=== PATIENT | male | born 1930 | race Caucasian/White ===

== ENCOUNTER 2016-12-11 20:07 | Inpatient (IN) | payer MEDICARE, OTHER ==
[~2016-12-11] VITALS: Ht 188 cm; Wt 90.7 kg
[2016-12-11 20:00] VITALS: BP 157/44
[2016-12-11 20:07] VITALS: BP 157/44
[~2016-12-11 20:07] MED LIST: ACYCLOVIR400 MG ORAL; ARICEPT5 MG ORAL; ASPIR 8181 MG ORAL; ATARAX25 MG ORAL; BENAZEPRIL HCL40 MG ORAL; CIPROFLOXACIN500 M2 ORAL; CIPROFLOXACIN500 MG PO; CLARITIN10 M2 ORAL; DIOVAN80 MG ORAL; GLIPIZIDE5 MG ORAL; GLUCOPHAGE500 MG ORAL; IBUPROFEN400 MG ORAL; LACRI-LUBE1 APPLIC RIGHT EYE; LIPITOR40 MG ORAL; LIPITOR80 MG ORAL; MAGNESIUM OXID400 M1 ORAL; OMEGA 3 1,0001 EACH PO; PAXIL30 MG ORAL; TOPROL XL50 MG ORAL
[2016-12-11 21:02] LABS: BASOPHILS % (AUTO) 1.6 % (0.0-2.0); EOSINOPHILS % (AUTO) 0.3 % (0.0-3.0); LYMPHOCYTES % (AUTO) 19.1 % (20.0-45.0); MEAN CORPUSCULAR HEMOGLOBIN 33.3 PG (27.0-31.0); MEAN CORPUSCULAR VOLUME 90 FL (80-99); MEAN PLATELET VOLUME 7.9 FL (6.5-10.1); MONOCYTES % (AUTO) 10.2 % (1.0-10.0); NEUTROPHILS % (AUTO) 68.9 % (45.0-75.0); PLATELET COUNT 134 K/UL (150-450); RED BLOOD COUNT 4.74 M/UL (4.70-6.10); WHITE BLOOD COUNT 5.1 K/UL (4.8-10.8)
[2016-12-11 21:08] LABS: APPEARANCE,URINE SLIGHTLY CLOUDY; KETONES,URINE NEGATIVE (NEGATIVE); LEUKOCYTE ESTERASE ,URINE 2+ (NEGATIVE); NITRITE,URINE NEGATIVE (NEGATIVE); PH,URINE 5 (4.5-8.0); PROTEIN,URINE 4+ (NEGATIVE); UROBILINOGEN,URINE 1 MG/DL (0.0-1.0)
[2016-12-11 21:09] LABS: TROPONIN I < 0.30 ng/mL (<=0.30)
[2016-12-11 21:12] LABS: ALANINE AMINOTRANSFERASE 12 U/L (3-41); ANION GAP 15 (5-15); ASPARTATE AMINO TRANSFERASE 23 U/L (5-40); CALCIUM 8.9 mg/dL (8.6-10.2); CARBON DIOXIDE 27 mEQ/L (20-30); CHLORIDE 97 mEQ/L (98-107); CREATININE 0.8 mg/dL (0.7-1.2); HEMOLYSIS 8; POTASSIUM 4.2 mEQ/L (3.4-4.9); SODIUM 139 mEQ/L (135-145); TOTAL PROTEIN 6.2 g/dL (6.6-8.7)
[2016-12-11 21:16] LABS: RBC,URINE 40-60 /HPF (0 - 0)
[2016-12-11 21:17] LABS: AMORPHOUS SEDIMENT,UR FEW /LPF; BACTERIA,URINE MODERATE /HPF
[2016-12-11 21:30] LABS: REFLEX LACTIC ACID YES OR NO YES
[2016-12-11] MEDS ORDERED: cefTRIAXone 1 GM in NS 55 ML IVPB ONE (21:45)
[2016-12-11 22:09] VITALS: BP 146/41
--- NOTE | 2016-12-11 22:50 | Emergency Room Report ---
History of Present Illness General Chief Complaint: Generalized Weakness Source: Patient, Medical Record Present Illness HPI Patient is an 86-year-old male brought in by EMS after increased generalized weakness. Patient was noted to be diabetic. Patient had not been eating well since the morning. Patient had prior history of dementia and other chronic medical conditions. Patient was only taking metformin for his diabetes. Patient had not been vomiting or having diarrhea. Per EMS patient had been having some increased difficulty ambulating. Allergies: Coded Allergies: No Known Allergies (Verified , 03/19/11) Patient History Past Medical History: see triage record, DM Reviewed Nursing Documentation: PMH: Agreed, PSxH: Agreed Nursing Documentation-PMH Hx Cardiac Problems: Yes - HYPERCHOLESTEROL Hx Hypertension: Yes Hx COPD: Yes Hx Diabetes: Yes Hx Cancer: No Hx Gastrointestinal Problems: No Hx Neurological Problems: Yes Hx Memory Loss: Yes - mild cognition problems Hx Concentration Difficulty: Yes Hx Dizziness: Yes Hx Weakness: Yes - Left lower leg Review of Systems All Other Systems: negative except mentioned in HPI Physical Exam Vital Signs Date Time Temp Pulse Resp B/P Pulse Ox O2 Delivery O2 Flow Rate FiO2 12/11/16 19:36 98.8 67 16 153/62 92 Room Air 12/11/16 22:09 2.0 Sp02 EP Interpretation: reviewed, normal General Appearance: normal inspection, well appearing, no apparent distress, alert, GCS 15, non-toxic Head: atraumatic ENT: normal ENT inspection, hearing grossly normal, normal voice Neck: normal inspection, full range of motion, supple, no bony tend Respiratory: normal inspection, lungs clear, normal breath sounds, no respiratory distress, no retraction, no wheezing Cardiovascular #1: regular rate, rhythm, no edema Gastrointestinal: normal inspection, normal bowel sounds, non tender, soft, no guarding, no hernia Genitourinary: no CVA tenderness Musculoskeletal: normal inspection, back normal, normal range of motion Neurologic: normal inspection, alert, responsive, speech normal Psychiatric: normal inspection, judgement/insight normal, mood/affect normal Skin: normal inspection, normal color, no rash Medical Decision Making Diagnostic Impression: Primary Impression: UTI (urinary tract infection) Additional Impressions: Dementia Hypoglycemia Lactic acid acidosis ER Course Patient presented for generalized weakness. Differential diagnosis included was not limited to anemia, urinary tract infection, electrolyte abnormality, hypothyroidism, myocardial infarction, myasthenia gravis, dehydration, among others. Because of complexity of patient's case laboratory testing and imaging studies were ordered. The patient was noted to have a nonfocal neurologic exam. CT the head read by radiology showed atrophic changes with a lacunar infarct. The EKG interpreted by me showed normal sinus rhythm with a rate of [address] or T wave changes Patient was noted to have a low blood sugar and was given IV dextrose. Patient started on IV fluids and given IV Rocephin for presumed urinary tract infection. was contacted for inpatien observation. Chest X-Ray Diagnostic Results EP Interpretation: Yes Findings: no consolidation, no effusion, no pneumothorax, no acute cardiopulmonary disease Number of Views: 1 Last Vital Signs Date Time Temp Pulse Resp B/P Pulse Ox O2 Delivery O2 Flow Rate FiO2 12/11/16 22:28 99.1 65 18 146/41 97 Nasal Cannula 2.0 Status: unchanged Disposition: PLACE IN OBSERVATION Condition: Serious Referrals: ROSIE DUNCAN (PCP) Oneil Aponte Dec 11, 2016 22:50
[2016-12-12] VITALS (7 sets, daily range): BP systolic 126–168; BP diastolic 47–76
[2016-12-12] MEDS: NovoLOG Insulin Flexpen SUBQ SCH ×4 (06:30→21:00)
[2016-12-12 08:00] LABS: BASOPHILS % (AUTO) 0.5 % (0.0-2.0); LYMPHOCYTES % (AUTO) 17.6 % (20.0-45.0); MEAN CORPUSCULAR HEMOGLOBIN 29.3 PG (27.0-31.0); MEAN CORPUSCULAR HGB CONC 32.8 G/DL (32.0-36.0); MEAN CORPUSCULAR VOLUME 89 FL (80-99); MEAN PLATELET VOLUME 7.8 FL (6.5-10.1); MONOCYTES % (AUTO) 11.2 % (1.0-10.0); NEUTROPHILS % (AUTO) 70.7 % (45.0-75.0); PLATELET COUNT 131 K/UL (150-450); RED BLOOD COUNT 4.81 M/UL (4.70-6.10); WHITE BLOOD COUNT 6.2 K/UL (4.8-10.8)
[2016-12-12 08:20] LABS: ANION GAP 13 (5-15); CARBON DIOXIDE 25 mEQ/L (20-30); CHLORIDE 99 mEQ/L (98-107); CREATININE 0.6 mg/dL (0.7-1.2); HEMOLYSIS 12; SODIUM 137 mEQ/L (135-145)
[2016-12-12] MEDS ORDERED: Heparin 5000 units/ml inj SUBQ SCH (09:00)
[2016-12-12] MEDS: Aspirin Baby 81mg ORAL SCH (09:25)
[2016-12-12] MEDS: Donepezil 5mg Tab ORAL SCH (09:25)
[2016-12-12] MEDS: PARoxetine 10mg tab ORAL SCH (09:26)
[2016-12-12] MEDS: Irbesartan 150mg tablet ORAL SCH ×2 (09:26→17:17)
--- NOTE | 2016-12-12 09:40 | Diagnostic Imaging Report ---
Indication: Head pain Technique: Continuous helical CT scanning of the head was performed utilizing automated exposure control without intravenous contrast material. Axial and coronal reconstructions were obtained. Comparison: 01/28/16 CT dose: Total DLP 1484 mGycm; CTDI vol 70.4 mGy Findings: There is no acute intracranial hemorrhage, mass effect or cortical edema. The ventricles, cisterns and sulci are prominent consistent with atrophy. Nonspecific periventricular and subcortical hypoattenuation are seen suggestive of chronic ischemic microvascular changes. The posterior fossa and fourth ventricle are unremarkable. Sellar and suprasellar regions are grossly unremarkable. Mastoid air cells are clear. There is minimal mucosal thickening of paranasal sinuses. No focal lesions of the bony calvarium or soft tissues of the scalp are seen. Impression: No evidence of acute intracranial hemorrhage, mass effect or cortical edema. MRI may be obtained for more sensitive evaluation as clinically indicated. Atrophy and nonspecific periventricular and subcortical hypoattenuation suggestive of chronic ischemic microvascular changes. The CT scanner at [facility] is accredited by the [employer] and the scans are performed using protocols designed to limit radiation exposure to as low as reasonably achievable to attain images of sufficient resolution adequate for diagnostic evaluation.
--- NOTE | 2016-12-12 16:30 | General Progress Note ---
Assessment/Plan Status: stable Assessment/Plan 1. UTI - Cont Rocephin 1gm IV daily. F/U urine cx. 2. Generalized Weakness - ordered P.T./O.T. and txt. 3. HTN - cont home meds and add clonidine 0.1 mg one q 8 hrs PRN for SBP > 160. 4. DM II - SSI ordered. hold Metformin for now. 5. Hyperlipidemia - cont home meds. 6. Dementia Subjective Date patient seen: Dec 12, 2016 Time patient seen: 09:20 Constitutional: Reports: weakness HEENT: Reports: no symptoms Cardiovascular: Reports: no symptoms Respiratory: Reports: no symptoms Gastrointestinal/Abdominal: Reports: no symptoms Genitourinary: Reports: no symptoms Neurologic/Psychiatric: Reports: no symptoms Endocrine: Reports: no symptoms Hematologic/Lymphatic: Reports: no symptoms Allergies: Coded Allergies: No Known Allergies (Verified , 03/19/11) Subjective Pt is doing well. No sob or chest pain. No fever or chills. No nausea or vomiting. Objective Last 24 Hour Vital Signs Date Time Temp Pulse Resp B/P Pulse Ox O2 Delivery O2 Flow Rate FiO2 12/12/16 16:01 97.5 64 14 151/60 95 Nasal Cannula 12/12/16 12:15 98.1 69 20 126/76 97 Room Air 12/12/16 09:26 132/56 12/12/16 09:26 64 132/56 12/12/16 09:25 132/56 12/12/16 08:15 98.2 64 20 132/56 96 Nasal Cannula 2.0 12/12/16 04:00 98.4 68 22 156/59 92 Nasal Cannula 2.0 12/12/16 02:08 97.5 64 22 168/71 99 Nasal Cannula 2.0 12/12/16 00:00 64 22 168/71 99 Nasal Cannula 2.0 12/12/16 00:00 97.5 64 22 168/71 99 Nasal Cannula 2.0 12/11/16 22:28 99.1 65 18 146/41 97 Nasal Cannula 2.0 12/11/16 22:09 99.1 65 18 146/41 97 Nasal Cannula 2.0 12/11/16 20:07 99.1 66 19 157/44 94 Room Air 12/11/16 20:00 66 20 157/44 99 Room Air 12/11/16 19:36 98.8 67 16 153/62 92 Room Air Intake and Output 12/11/16 12/12/16 19:00 07:00 # Voids 3 # Bowel Movements 2 Laboratory Tests 12/11/16 20:20: White Blood Count 5.1, Red Blood Count 4.74, Hemoglobin 15.8, Hematocrit 42.7, Mean Corpuscular Volume 90, Mean Corpuscular Hemoglobin 33.3H, Mean Corpuscular Hemoglobin Concent 37.0H, Red Cell Distribution Width 13.0, Platelet Count 134L , Mean Platelet Volume 7.9, Neutrophils (%) (Auto) 68.9, Lymphocytes (%) (Auto) 19.1L, Monocytes (%) (Auto) 10.2H, Eosinophils (%) (Auto) 0.3, Basophils (%) ( Auto) 1.6, Urine Color Red, Urine Appearance Slightly cloudy, Urine pH 5, Urine Specific [place] 1.020, Urine Protein 4+H, Urine Glucose (UA) Negative, Urine Ketones Negative, Urine Occult Blood 5+H, Urine Nitrite Negative, Urine Bilirubin Negative, Urine Urobilinogen 1H, Urine Leukocyte Esterase 2+H, Urine RBC 40-60H, Urine WBC 5-10H, Urine Squamous Epithelial Cells None, Urine Amorphous Sediment FewH, Urine Bacteria ModerateH, Sodium Level 139, Potassium Level 4.2, Chloride Level 97L, Carbon Dioxide Level 27, Anion Gap 15, Blood Urea Nitrogen 23, Creatinine 0.8, Estimat Glomerular Filtration Rate , Glucose Level 40L, Lactic Acid Level 2.20, Calcium Level 8.9, Total Bilirubin 0.3, Aspartate Amino Transf (AST/SGOT) 23, Alanine Aminotransferase (ALT/SGPT) 12, Alkaline Phosphatase 66, Total Creatine Kinase 127, Creatine Kinase MB 3.0, Creatine Kinase MB Relative Index 2.3, Troponin I < 0.30, Total Protein 6.2L, Albumin 3.2L, Globulin 3.0, Albumin/Globulin Ratio 1.0 12/11/16 22:10: Lactic Acid Level 2.00 12/12/16 05:35: White Blood Count 6.2, Red Blood Count 4.81, Hemoglobin 14.1L, Hematocrit 42.8, Mean Corpuscular Volume 89, Mean Corpuscular Hemoglobin 29.3, Mean Corpuscular Hemoglobin Concent 32.8, Red Cell Distribution Width 13.0, Platelet Count 131L, Mean Platelet Volume 7.8, Neutrophils (%) (Auto) 70.7, Lymphocytes (%) (Auto) 17.6L, Monocytes (%) (Auto) 11.2H, Eosinophils (%) (Auto) 0.0, Basophils (%) ( Auto) 0.5, Sodium Level 137, Potassium Level 4.0, Chloride Level 99, Carbon Dioxide Level 25, Anion Gap 13, Blood Urea Nitrogen 18, Creatinine 0.6L, Estimat Glomerular Filtration Rate , Glucose Level 78, Calcium Level 8.0L Height (Feet): 6 Height (Inches): 2.00 Weight (Pounds): 200 General Appearance: no apparent distress, alert EENT: normal ENT inspection Neck: non-tender, normal alignment, supple Cardiovascular: normal rate, regular rhythm Respiratory/Chest: chest wall non-tender, lungs clear, normal breath sounds Abdomen: normal bowel sounds, non tender, soft, no organomegaly Extremities: normal range of motion, non-tender Edema: no edema noted Arm (L), no edema noted Arm (R), no edema noted Leg (L), no edema noted Leg (R), no edema noted Pedal (L), no edema noted Pedal (R), no edema noted Generalized Neurologic: no motor/sensory deficits, alert, responsive Skin: warm/dry Lymphatic: normal anterior cervical (L), normal anterior cervical (R), normal axillary (L), normal axillary (R), normal inguinal (L), normal inguinal (R), normal other, normal posterior cervical (L), normal posterior cervical (R), normal submandibular (L), normal submandibular (R), normal supraclavicular (L), normal supraclavicular (R) ROSIE DUNCAN Dec 12, 2016 16:30
[2016-12-13] VITALS: BP 142/49
--- NOTE | 2016-12-13 03:58 | History and Physical Report ---
DATE OF ADMISSION: 12/11/2016 CHIEF COMPLAINT: Generalized weakness. HISTORY OF PRESENT ILLNESS: This is an 86-year-old male, who is brought in by EMS for complaint of increased generalized weakness that has been noticed in the assisted living where he resides. The patient was fine in the morning, but according to caregiver the patient was not able to eat well and was very weak during walking, and there was a concern and he was transferred to [facility] to rule out stroke. The patient did not have any fever or chills. No nausea, vomiting, or abdominal pain. He has a history of dementia, diabetes mellitus, and hypertension for a long time. PAST MEDICAL HISTORY: Includes diabetes, hypertension, dementia, and hyperlipidemia. PAST SURGICAL HISTORY: History of hip replacement status post fall previously. FAMILY HISTORY: Unknown. ALLERGIES: No known drug allergies. SOCIAL HISTORY: The patient resides at the [facility] living [facility], no history of alcohol or drug use. No smoking. REVIEW OF SYSTEMS: Negative except for HPI. PHYSICAL EXAMINATION: VITAL SIGNS: Temperature 98.8 degrees, pulse 67, respirations 16, blood pressure 153/52, and pulse ox 92 on room air. GENERAL APPEARANCE: In no apparent distress. Alert and oriented x2. HEENT: Atraumatic and normocephalic. Extraocular muscles are intact. Throat is clear. CARDIOVASCULAR: Regular rate and rhythm. No murmur. No gallop. LUNGS: Clear to auscultation bilaterally. GI: Soft, nontender, and nondistended. Positive bowel sounds. No hepatosplenomegaly. : No CVA tenderness. EXTREMITIES: No edema, cyanosis, or clubbing. NEUROLOGIC: The patient responds to commands. SKIN: No rash. LABORATORY AND DIAGNOSTIC DATA: WBC 5.9, hemoglobin 15.8, hematocrit 43.7, platelet count 134,000, neutrophils 68, lymphocytes 19.1, and monocytes 10.2. Chemistry, sodium is 139, potassium 4.6, chloride 97, bicarbonate 27, BUN 23, creatinine 0.8, glucose 40, and calcium 8.9. AST 0.3, ALT 12, alkaline phosphatase 66. Total creatinine kinase 1.7, total protein 6.2, albumin 3.2, and troponin 3.0. UA slightly cloudy, +4 urine protein, +5 occult blood and +1 urobilinogen, and +2 leukocyte esterase, 30 to 60 urine RBC and 5 to 10 WBC, few amorphic sediments and moderate bacteria. No epithelial cells. EKG showed normal sinus rhythm at the rate of 62. There are no ST and T wave changes. CT of the heart showed atrophic changes with lacunar infarct. IMPRESSION: 1. Urinary tract infection. 2. Dementia. 3. Lactic acid likely acidosis. 4. Hypoglycemia. 5. Diabetes mellitus 6. Hypertension. 7. Hyperlipidemia. 8. Generalized weakness. 9. Gait instability. PLAN: The patient will be started on IV Rocephin and IV normal saline and will be followed up in the morning. Urine culture will be followed up as well. The patient will be restarted on home medications except for diabetic medications and we will start the patient on sliding scale insulin to cover for diabetes while inpatient. The patient will have PT and OT evaluation in the hospital and we depending on his progress, we may transfer him to rehab for physical therapy or assisted living. The patient will be admitted for minimum two-night stay for treatment of urinary tract infection and generalized weakness. Maribeth Loya M.D. DR: Albaro JOB#: [id number] CC: GERBER
[2016-12-13 04:00] VITALS: BP 156/58
[2016-12-13] MEDS: NovoLOG Insulin Flexpen SUBQ SCH ×4 (06:27→22:02)
[2016-12-13 08:07] VITALS: BP 148/53
[2016-12-13 08:12] LABS: BASOPHILS % (AUTO) 0.7 % (0.0-2.0); EOSINOPHILS % (AUTO) 0.5 % (0.0-3.0); LYMPHOCYTES % (AUTO) 37.4 % (20.0-45.0); MEAN CORPUSCULAR HEMOGLOBIN 29.3 PG (27.0-31.0); MEAN CORPUSCULAR HGB CONC 32.8 G/DL (32.0-36.0); MEAN CORPUSCULAR VOLUME 89 FL (80-99); MEAN PLATELET VOLUME 8.1 FL (6.5-10.1); MONOCYTES % (AUTO) 11.9 % (1.0-10.0); NEUTROPHILS % (AUTO) 49.4 % (45.0-75.0); PLATELET COUNT 139 K/UL (150-450); RED CELL DISTRIBUTION WIDTH 13.3 % (11.6-14.8); WHITE BLOOD COUNT 4.6 K/UL (4.8-10.8)
[2016-12-13 08:28] LABS: ANION GAP 11 (5-15); CALCIUM 8.2 mg/dL (8.6-10.2); CARBON DIOXIDE 27 mEQ/L (20-30); CHLORIDE 104 mEQ/L (98-107); CREATININE 0.6 mg/dL (0.7-1.2); HEMOLYSIS 6; SODIUM 142 mEQ/L (135-145)
[2016-12-13] MEDS: Aspirin Baby 81mg ORAL SCH (08:30)
[2016-12-13] MEDS: PARoxetine 10mg tab ORAL SCH (08:30)
[2016-12-13] MEDS: Irbesartan 150mg tablet ORAL SCH ×2 (08:31→17:16)
[2016-12-13] MEDS: Donepezil 5mg Tab ORAL SCH (08:31)
--- NOTE | 2016-12-13 09:34 | Diagnostic Imaging Report ---
Indication: Shortness of breath Technique: XRAY CHEST 1 V Comparison: 01/28/16 Findings: Cardiac silhouette is prominent. There is central pulmonary vascular congestion and bibasilar atelectasis. There is no pneumothorax or obvious effusion. Degenerative changes of the spine are noted. Impression: Cardiomegaly with central pulmonary vascular congestion and bibasilar atelectasis. Clinical correlation/followup recommended.
[2016-12-13 11:22] VITALS: BP 143/54
[2016-12-13 16:00] VITALS: BP 171/59
--- NOTE | 2016-12-13 17:24 | General Progress Note ---
Assessment/Plan Status: stable Assessment/Plan 1. UTI - Cont Rocephin 1gm IV daily. F/U urine cx. 2. Generalized Weakness - ordered P.T./O.T. and txt. 3. HTN - cont home meds and add clonidine 0.1 mg one q 8 hrs PRN for SBP > 160. 4. DM II - SSI ordered. hold Metformin for now. 5. Hyperlipidemia - cont home meds. 6. Dementia - CT of head was negative for CVA. not a candidate for MRI due to metal hip replacement. 7. D/C planning for tomorrow. Subjective Date patient seen: Dec 13, 2016 Time patient seen: 04:50 Constitutional: Reports: weakness HEENT: Reports: no symptoms Cardiovascular: Reports: no symptoms Respiratory: Reports: no symptoms Gastrointestinal/Abdominal: Reports: no symptoms Genitourinary: Reports: incontinence Neurologic/Psychiatric: Reports: weakness Endocrine: Reports: no symptoms Hematologic/Lymphatic: Reports: no symptoms Allergies: Coded Allergies: No Known Allergies (Verified , 03/19/11) Subjective Pt is doing well. No sob or chest pain. No fever or chills. No nausea or vomiting. was able to walk few steps with physical therapy with mod assistance. Objective Last 24 Hour Vital Signs Date Time Temp Pulse Resp B/P Pulse Ox O2 Delivery O2 Flow Rate FiO2 12/13/16 17:18 171/59 12/13/16 17:16 161/54 12/13/16 11:22 97.9 53 21 143/54 97 Nasal Cannula 2.0 12/13/16 08:31 148/53 12/13/16 08:31 56 148/53 12/13/16 08:30 148/53 12/13/16 08:07 97.2 56 20 148/53 95 Nasal Cannula 2.0 12/13/16 04:00 97.0 55 20 156/58 96 Nasal Cannula 2.0 12/13/16 00:00 97.3 55 20 142/49 95 Nasal Cannula 2.0 12/13/16 00:00 97.3 55 20 142/49 95 Nasal Cannula 2.0 12/12/16 20:00 97.0 59 20 139/47 95 Nasal Cannula 2.0 Intake and Output 12/12/16 12/13/16 19:00 07:00 Intake Total 440 ml Output Total 200 ml Balance 240 ml Intake Oral 440 ml Output Urine Total 200 ml # Voids 2 4 Laboratory Tests 12/13/16 07:30: White Blood Count 4.6L, Red Blood Count 4.90, Hemoglobin 14.4, Hematocrit 43.8, Mean Corpuscular Volume 89, Mean Corpuscular Hemoglobin 29.3, Mean Corpuscular Hemoglobin Concent 32.8, Red Cell Distribution Width 13.3, Platelet Count 139L, Mean Platelet Volume 8.1, Neutrophils (%) (Auto) 49.4, Lymphocytes (%) (Auto) 37.4, Monocytes (%) (Auto) 11.9H, Eosinophils (%) (Auto) 0.5, Basophils (%) ( Auto) 0.7, Sodium Level 142, Potassium Level 4.0, Chloride Level 104, Carbon Dioxide Level 27, Anion Gap 11, Blood Urea Nitrogen 20, Creatinine 0.6L, Estimat Glomerular Filtration Rate , Glucose Level 88, Calcium Level 8.2L Height (Feet): 6 Height (Inches): 2.00 Weight (Pounds): 200 General Appearance: no apparent distress, alert EENT: normal ENT inspection Neck: non-tender, normal alignment, supple Cardiovascular: normal peripheral pulses, normal rate, regular rhythm Respiratory/Chest: chest wall non-tender, lungs clear, normal breath sounds Abdomen: normal bowel sounds, non tender, soft Extremities: normal range of motion, non-tender Edema: no edema noted Arm (L), no edema noted Arm (R), no edema noted Leg (L), no edema noted Leg (R), no edema noted Pedal (L), no edema noted Pedal (R), no edema noted Generalized Neurologic: no motor/sensory deficits, alert, responsive Skin: warm/dry Lymphatic: normal anterior cervical (L), normal anterior cervical (R), normal axillary (L), normal axillary (R), normal inguinal (L), normal inguinal (R), normal other, normal posterior cervical (L), normal posterior cervical (R), normal submandibular (L), normal submandibular (R), normal supraclavicular (L), normal supraclavicular (R) ROSIE DUNCAN Dec 13, 2016 17:24
[2016-12-13 19:00] VITALS: BP 146/52
[2016-12-13] MEDS ORDERED: cefTRIAXone 1 GM in D5W 55 ML IVPB SCH (21:00)
[2016-12-14] VITALS: BP 142/54
[2016-12-14 04:00] VITALS: BP 136/58
[2016-12-14] MEDS: NovoLOG Insulin Flexpen SUBQ SCH ×3 (06:12→17:45)
[2016-12-14 07:11] LABS: ANION GAP 11 (5-15); CARBON DIOXIDE 26 mEQ/L (20-30); CHLORIDE 104 mEQ/L (98-107); CREATININE 0.5 mg/dL (0.7-1.2); HEMOLYSIS 14; POTASSIUM 4.2 mEQ/L (3.4-4.9); SODIUM 141 mEQ/L (135-145)
[2016-12-14 07:27] LABS: BASOPHILS % (AUTO) 0.8 % (0.0-2.0); EOSINOPHILS % (AUTO) 0.9 % (0.0-3.0); LYMPHOCYTES % (AUTO) 39.4 % (20.0-45.0); MEAN CORPUSCULAR HEMOGLOBIN 29.5 PG (27.0-31.0); MEAN CORPUSCULAR HGB CONC 33.2 G/DL (32.0-36.0); MEAN CORPUSCULAR VOLUME 89 FL (80-99); MEAN PLATELET VOLUME 7.9 FL (6.5-10.1); MONOCYTES % (AUTO) 10.6 % (1.0-10.0); NEUTROPHILS % (AUTO) 48.3 % (45.0-75.0); PLATELET COUNT 117 K/UL (150-450); RED BLOOD COUNT 4.72 M/UL (4.70-6.10); WHITE BLOOD COUNT 4.3 K/UL (4.8-10.8)
[2016-12-14 08:19] VITALS: BP 140/65
[2016-12-14] MEDS: PARoxetine 10mg tab ORAL SCH (08:49)
[2016-12-14] MEDS: Donepezil 5mg Tab ORAL SCH (08:49)
[2016-12-14] MEDS: Irbesartan 150mg tablet ORAL SCH ×2 (08:49→17:44)
[2016-12-14] MEDS: Aspirin Baby 81mg ORAL SCH (08:49)
--- NOTE | 2016-12-14 09:04 | General Progress Note ---
Assessment/Plan Status: stable Assessment/Plan 1. UTI - will D/C to rehab today and follow up Urine Sensitivity later. 2. Generalized Weakness - Transfer to Rehab today. 3. HTN - controlled. cont current meds. 4. DM II - On SSI. Will restart Metformin as outpt. 5. Hyperlipidemia - cont home meds. 6. Dementia - CT of head was negative for CVA. not a candidate for MRI due to metal hip replacement. 7. D/C to [facility] today. Subjective Date patient seen: Dec 14, 2016 Time patient seen: 08:50 Constitutional: Reports: no symptoms HEENT: Reports: no symptoms Cardiovascular: Reports: no symptoms Respiratory: Reports: no symptoms Gastrointestinal/Abdominal: Reports: no symptoms Genitourinary: Reports: no symptoms Neurologic/Psychiatric: Reports: no symptoms Endocrine: Reports: no symptoms Hematologic/Lymphatic: Reports: no symptoms Allergies: Coded Allergies: No Known Allergies (Verified , 03/19/11) Subjective Pt is doing well. No sob or chest pain. No fever or chills. No nausea or vomiting. Objective Last 24 Hour Vital Signs Date Time Temp Pulse Resp B/P Pulse Ox O2 Delivery O2 Flow Rate FiO2 12/14/16 08:50 140/65 12/14/16 08:49 140/65 12/14/16 08:49 59 140/65 12/14/16 08:19 97.5 59 16 140/65 92 Room Air 12/14/16 04:00 97.4 68 20 136/58 94 Room Air 12/14/16 00:00 97.9 62 20 142/54 92 Room Air 12/13/16 19:00 97.0 60 20 146/52 93 Nasal Cannula 2.0 12/13/16 17:18 171/59 12/13/16 17:16 161/54 12/13/16 16:00 96.8 60 20 171/59 97 Nasal Cannula 2.0 12/13/16 11:22 97.9 53 21 143/54 97 Nasal Cannula 2.0 Intake and Output 12/13/16 12/14/16 18:59 06:59 Intake Total 360 ml 295 ml Output Total 50 ml Balance 310 ml 295 ml Intake Oral 360 ml 240 ml IV Total 55 ml Output Urine Total 50 ml # Voids 2 6 # Bowel Movements 1 Laboratory Tests 12/14/16 06:00: White Blood Count 4.3L, Red Blood Count 4.72, Hemoglobin 13.9L, Hematocrit 42.0 , Mean Corpuscular Volume 89, Mean Corpuscular Hemoglobin 29.5, Mean Corpuscular Hemoglobin Concent 33.2, Red Cell Distribution Width 13.0, Platelet Count 117L, Mean Platelet Volume 7.9, Neutrophils (%) (Auto) 48.3, Lymphocytes ( %) (Auto) 39.4, Monocytes (%) (Auto) 10.6H, Eosinophils (%) (Auto) 0.9, Basophils (%) (Auto) 0.8, Sodium Level 141, Potassium Level 4.2, Chloride Level 104, Carbon Dioxide Level 26, Anion Gap 11, Blood Urea Nitrogen 17, Creatinine 0.5L, Estimat Glomerular Filtration Rate , Glucose Level 96, Calcium Level 8.0L Height (Feet): 6 Height (Inches): 2.00 Weight (Pounds): 200 General Appearance: no apparent distress, alert EENT: normal ENT inspection, TMs normal Neck: non-tender, normal alignment, supple Cardiovascular: normal peripheral pulses, normal rate, regular rhythm Respiratory/Chest: chest wall non-tender, lungs clear, normal breath sounds Abdomen: normal bowel sounds, non tender, soft Extremities: normal range of motion, non-tender Edema: no edema noted Arm (L), no edema noted Arm (R), no edema noted Leg (L), no edema noted Leg (R), no edema noted Pedal (L), no edema noted Pedal (R), no edema noted Generalized Neurologic: alert, responsive Skin: warm/dry Lymphatic: normal anterior cervical (L), normal anterior cervical (R), normal axillary (L), normal axillary (R), normal inguinal (L), normal inguinal (R), normal other, normal posterior cervical (L), normal posterior cervical (R), normal submandibular (L), normal submandibular (R), normal supraclavicular (L), normal supraclavicular (R) ROSIE DUNCAN Dec 14, 2016 09:04
[2016-12-14 11:39] VITALS: BP 137/50
[2016-12-14] MEDS ORDERED: CEPHALEXIN500 MG ORAL (13:18)
[2016-12-14 16:00] VITALS: BP 163/74
[2016-12-14 19:17] VITALS: BP 140/68
--- NOTE | 2016-12-17 16:18 | Cardiology Report ---
APPROVED REPORT EKG Measurement Heart [id number] Normal sinus rhythm Left anterior fascicular block Voltage criteria for left ventricular hypertrophy Nonspecific ST and T wave abnormality Abnormal ECG
--- NOTE | 2016-12-31 19:25 | Discharge Summary ---
Discharge Summary Hospital Course Date of Admission Dec 11, 2016 at 21:11 Date of Discharge Dec 14, 2016 at 20:35 Admitting Diagnosis Generalized weakness HPI Serge Abernathy is a 86 year old male who was admitted on Dec 11, 2016 at 21:11 for Generalized Weakness Hospital Course [id number] Discharge Discharge Disposition Patient was discharged to SNF/Subacute Facility(03) Discharge Diagnoses: Perla Saleh NP Dec 31, 2016 19:25
--- NOTE | 2016-12-31 23:38 | Discharge Summary 2 SIG ---
DATE OF ADMISSION: 12/11/2016 DATE OF DISCHARGE: 12/14/2016 BRIEF HOSPITAL COURSE: The patient is a 86-year-old male, who was brought by EMS for complaints of increased generalized weakness. The patient was fine in the morning and was not able to eat well and was very weak when walking. He was transferred to [facility] for further evaluation. He has history of dementia, diabetes mellitus, and hypertension. On evaluation, EKG showed sinus rhythm, no ST or T-wave changes. CT of the brain showed atrophic changes with lacunar infarct. Urine showed urine infection and the patient was admitted and was started on IV normal saline and IV Rocephin. He underwent physical therapy and occupational therapy. A CT of the head was negative for CVA, however, unable to do MRI due to metal hip replacement. The patient was discharged to [facility]. FINAL DIAGNOSES: 1. Urinary tract infection. 2. Generalized weakness. 3. Hypertension. 4. Diabetes mellitus, type 2. 5. Hyperlipidemia. 6. Dementia. Maribeth Loya M.D. I have been assigned to dictate discharge summary on this account and I was not involved in the patient's management. Perla Saleh N.P. DR: TOMÁS JOB#: [id number] CC: GERBER
== END 2016-12-14 20:35 | DRG 690 ==
LOC: EDBD 20:07 → EMR 21:07 → 4E 21:11 → OBSVTOIN 21:11 → UNDOADMOB 21:11 → 4E 21:12 → UNDOADMOB 21:12 → 4E 21:13 → UNDOADMOB 21:13 → EDBEDREQ 22:03 → OBSVTOIN 12-12 00:49 → INTOOBSV 12-12 00:49
DX: N39.0 Urinary tract infection, site not specified (principal); E11.649 Type 2 diabetes mellitus with hypoglycemia without coma; F03.90 Unspecified dementia, unspecified severity, without behavioral disturbance, psychotic disturbance, mood disturbance, and anxiety; E78.00 Pure hypercholesterolemia, unspecified; I10 Essential (primary) hypertension; E78.5 Hyperlipidemia, unspecified; R26.89 Other abnormalities of gait and mobility
CPT/HCPCS: 36415; 70450; 71010; 80048; 80053; 81003; 82550; 82553; 82962; 83605; 84484; 85025; 86710; 87040; 87081; 87086; 87181; 93005; J1815

== ENCOUNTER 2018-03-10 13:51 | Inpatient (IN) | payer MEDICARE, OTHER ==
[~2018-03-10] VITALS: Ht 177.8 cm; Wt 79.4 kg
[~2018-03-10 13:51] MED LIST changes: +CEPHALEXIN500 MG ORAL
[2018-03-10 14:20] VITALS: BP 154/54
[2018-03-10 14:52] LABS: HEMATOCRIT 48.3 % (42.0-52.0); HEMOGLOBIN 16.5 G/DL (14.2-18.0); MEAN CORPUSCULAR VOLUME 89 FL (80-99); PLATELET COUNT 155 K/UL (150-450); RED BLOOD COUNT 5.41 M/UL (4.70-6.10); RED CELL DISTRIBUTION WIDTH 12.3 % (11.6-14.8); WHITE BLOOD COUNT 9.3 K/UL (4.8-10.8)
[2018-03-10 14:53] LABS: APPEARANCE,URINE TURBID; BILIRUBIN, URINE NEGATIVE (NEGATIVE); GLUCOSE, URINE (UA) NEGATIVE (NEGATIVE); KETONES,URINE NEGATIVE (NEGATIVE); LEUKOCYTE ESTERASE ,URINE 3+ (NEGATIVE); NITRITE,URINE NEGATIVE (NEGATIVE); PH,URINE 5 (4.5-8.0); PROTEIN,URINE 4+ (NEGATIVE); UROBILINOGEN,URINE NORMAL MG/DL (0.0-1.0)
[2018-03-10 14:56] LABS: COLOR,URINE YELLOW
[2018-03-10 15:07] LABS: ANION GAP 9 mmol/L (5-15); BLOOD UREA NITROGEN 19 mg/dL (7-18); CALCIUM 9.1 MG/DL (8.5-10.1); CARBON DIOXIDE 27 MMOL/L (21-32); CHLORIDE 105 MMOL/L (98-107); CREATININE 0.7 MG/DL (0.55-1.30); POTASSIUM 4.4 MMOL/L (3.5-5.1); SODIUM 140 MMOL/L (136-145)
--- NOTE | 2018-03-10 15:15 | Emergency Room Report ---
History of Present Illness General Chief Complaint: Vomiting Source: Patient, Medical Record Present Illness HPI 88-year-old male presents ED for evaluation. Patient brought in from [facility] facility. Patient had low-grade fever at facility. Temp here 100. Patient showing no distress upon arrival. No chest pain or shortness of breath. There have been a few episodes of vomiting. Denies any abdominal pain. No other aggravating relieving factors. 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 Hx Memory Loss: Yes - mild cognition problems Hx Concentration Difficulty: Yes Hx Dizziness: Yes Hx Weakness: Yes Review of Systems All Other Systems: negative except mentioned in HPI Physical Exam Vital Signs Date Time Temp Pulse Resp B/P (MAP) Pulse Ox O2 Delivery O2 Flow Rate FiO2 03/10/18 13:45 100.0 82 22 172/76 94 Nasal Cannula 2.0 100.0 Sp02 EP Interpretation: reviewed, normal General Appearance: no apparent distress, alert, GCS 15, non-toxic Head: normocephalic, atraumatic Eyes: bilateral eye normal inspection, bilateral eye PERRL ENT: hearing grossly normal, normal pharynx, no angioedema, normal voice Neck: full range of motion, supple/symm/no masses Respiratory: chest non-tender, normal breath sounds, crackles, speaking full sentences Cardiovascular #1: regular rate, rhythm, no edema Cardiovascular #2: 2+ carotid (R), 2+ carotid (L), 2+ radial (R), 2+ radial (L) , 2+ dorsalis pedis (R), 2+ dorsalis pedis (L) Gastrointestinal: normal bowel sounds, non tender, soft, non-distended, no guarding, no rebound Rectal: deferred Genitourinary: normal inspection, no CVA tenderness Musculoskeletal: back normal, gait/station normal, normal range of motion, non- tender Neurologic: alert, oriented x3, responsive, motor strength/tone normal, sensory intact, speech normal Psychiatric: judgement/insight normal, memory normal, mood/affect normal, no suicidal/homicidal ideation Reflexes: 3+ bicep (R), 3+ bicep (L), 3+ tricep (R), 3+ tricep (L), 3+ knee (R) , 3+ knee (L) Skin: normal color, no rash, warm/dry, well hydrated Lymphatic: no adenopathy Medical Decision Making Diagnostic Impression: Primary Impression: Vomiting Qualified Codes: R11.2 - Nausea with vomiting, unspecified Additional Impressions: UTI (urinary tract infection) Qualified Codes: N39.0 - Urinary tract infection, site not specified Generalized weakness Dementia Qualified Codes: F03.90 - Unspecified dementia without behavioral disturbance CHF (congestive heart failure) Qualified Codes: I50.9 - Heart failure, unspecified ER Course Hospital Course 88 yo M presents to ED c/o vomiting. fever Differential diagnoses include: Pneumonia, UTI, sepsis, dehydration, FL/ unstable angina Clinical course Patient placed on stretcher. On conveyor monitor with stable vitals are ED course. After initial history and physical, I ordered labs, IV fluids, EKG, chest x-ray, blood cultures, UA. Labs - electrolytes ok, no leukocytosis, troponins negative, BNP elevated, UA grossly positive for UTI EKG - NSR, LVH, no acute ischemic changes interpreted by me CXR -cardiomegaly, CHF Abx given. patient not given 30cc/kg fluid bolus as patient is normotensive, also because of significant CHF Discussed findings with son, who lives in [facility] Case discussed with Dr Loya and they agreed to admit patient to their service for further care and support I feel this is a highly complex case requiring extensive working including EKG/ Rhythm strip, Xray/CT/US, Blood/urine lab work, repeat exams while in ED, and administration of strong opiates/narcotics for pain control, admission to hospital or close patient follow up. Diagnosis - UTI, vomiting, CHF, weakness, dementia Patient admitted to telemetry in serious condition Labs Test 03/10/18 14:29 White Blood Count 9.3 K/UL (4.8-10.8) Red Blood Count 5.41 M/UL (4.70-6.10) Hemoglobin 16.5 G/DL (14.2-18.0) Hematocrit 48.3 % (42.0-52.0) Mean Corpuscular Volume 89 FL (80-99) Mean Corpuscular Hemoglobin 30.5 PG (27.0-31.0) Mean Corpuscular Hemoglobin Concent 34.1 G/DL (32.0-36.0) Red Cell Distribution Width 12.3 % (11.6-14.8) Platelet Count 155 K/UL (150-450) Mean Platelet Volume 7.6 FL (6.5-10.1) Neutrophils (%) (Auto) % (45.0-75.0) Lymphocytes (%) (Auto) % (20.0-45.0) Monocytes (%) (Auto) % (1.0-10.0) Eosinophils (%) (Auto) % (0.0-3.0) Basophils (%) (Auto) % (0.0-2.0) Differential Total Cells Counted 100 Neutrophils % (Manual) 88 % (45-75) Lymphocytes % (Manual) 7 % (20-45) Monocytes % (Manual) 5 % (1-10) Eosinophils % (Manual) 0 % (0-3) Basophils % (Manual) 0 % (0-2) Band Neutrophils 0 % (0-8) Platelet Estimate Adequate Platelet Morphology Normal Red Blood Cell Morphology Normal Urine Color Yellow Urine Appearance Turbid Urine pH 5 (4.5-8.0) Urine Specific Perrin 1.015 (1.005-1.035) Urine Protein 4+ (NEGATIVE) Urine Glucose (UA) Negative (NEGATIVE) Urine Ketones Negative (NEGATIVE) Urine Occult Blood 5+ (NEGATIVE) Urine Nitrite Negative (NEGATIVE) Urine Bilirubin Negative (NEGATIVE) Urine Urobilinogen Normal MG/DL (0.0-1.0) Urine Leukocyte Esterase 3+ (NEGATIVE) Urine RBC Tntc /HPF (0 - 0) Urine WBC Tntc /HPF (0 - 0) Urine Squamous Epithelial Cells Few /LPF (NONE/OCC) Urine Bacteria Moderate /HPF (NONE) Sodium Level 140 MMOL/L (136-145) Potassium Level 4.4 MMOL/L (3.5-5.1) Chloride Level 105 MMOL/L (98-107) Carbon Dioxide Level 27 MMOL/L (21-32) Anion Gap 9 mmol/L (5-15) Blood Urea Nitrogen 19 mg/dL (7-18) Creatinine 0.7 MG/DL (0.55-1.30) Estimat Glomerular Filtration Rate mL/min (>60) Glucose Level 121 MG/DL (74-106) Lactic Acid Level 2.30 mmol/L (0.4-2.0) Calcium Level 9.1 MG/DL (8.5-10.1) Total Bilirubin 0.6 MG/DL (0.2-1.0) Aspartate Amino Transf (AST/SGOT) 20 U/L (15-37) Alanine Aminotransferase (ALT/SGPT) 18 U/L (12-78) Alkaline Phosphatase 87 U/L (46-116) Total Creatine Kinase 57 U/L (26-308) Creatine Kinase MB 0.7 NG/ML (0.0-3.6) Creatine Kinase MB Relative Index 1.2 Troponin I 0.019 ng/mL (0.000-0.056) Pro-B-Type Natriuretic Peptide 1599 pg/mL (0-125) Total Protein 6.7 G/DL (6.4-8.2) Albumin 2.8 G/DL (3.4-5.0) Globulin 3.9 g/dL Albumin/Globulin Ratio 0.7 (1.0-2.7) EKG Diagnostic Results Rate: normal Rhythm: NSR ST Segments: no acute changes ASA given to the pt in ED: No Rhythm Strip Diag. Results EP Interpretation: yes Rhythm: NSR, no PVC's, no ectopy Chest X-Ray Diagnostic Results Chest X-Ray Diagnostic Results : Chest X-Ray Ordered: Yes # of Views/Limited/Complete: 1 View Indication: Other - vomiting EP Interpretation: Yes Interpretation: no pneumothorax, other - atelectasis/infiltrate Impression: Other - chf/pneumonia Electronically Signed by: Electronically signed by Thien Figueroa MD Last Vital Signs Date Time Temp Pulse Resp B/P (MAP) Pulse Ox O2 Delivery O2 Flow Rate FiO2 03/10/18 13:45 100.0 82 22 172/76 94 Nasal Cannula 2.0 100.0 Status: improved Disposition: ADMITTED INPATIENT Condition: Serious Thien Figueroa MD Mar 10, 2018 15:15
[2018-03-10 15:21] LABS: ALANINE AMINOTRANSFERASE 18 U/L (12-78); ALBUMIN 2.8 G/DL (3.4-5.0); ALBUMIN/GLOBULIN RATIO 0.7 (1.0-2.7); ALKALINE PHOSPHATASE 87 U/L (46-116); ASPARTATE AMINO TRANSFERASE 20 U/L (15-37); BILIRUBIN,TOTAL 0.6 MG/DL (0.2-1.0); CKMB 0.7 NG/ML (0.0-3.6); CREATINE KINASE 57 U/L (26-308)
--- NOTE | 2018-03-10 15:24 | Diagnostic Imaging Report ---
Indication: Dyspnea Comparison: 12/11/2016 A single view chest radiograph was obtained. Findings: Mild interstitial edema suspected with cardiomegaly and prominent vascularity centrally. Bones are osteopenic. IMPRESSION: Suspected mild CHF/interstitial edema
[2018-03-10] MEDS ORDERED: Azithromycin 500 MG in NS 275 ML IV ONE (15:30)
[2018-03-10] MEDS ORDERED: Cefepime HCl 1 GM in D5W 55 ML IVPB ONE (15:30)
[2018-03-10] MEDS ORDERED: CLORPRES 0.1-11 EACH PO (15:36)
[2018-03-10 20:00] VITALS: BP 137/90
[2018-03-10] MEDS: Atorvastatin 20mg tab ORAL SCH (21:05)
[2018-03-10] MEDS: Heparin 5000 units/ml inj SUBQ SCH (21:06)
[2018-03-11 00:11] VITALS: BP 136/92
--- NOTE | 2018-03-11 02:32 | History and Physical Report ---
DATE OF ADMISSION: 03/10/2018 CHIEF COMPLAINT: Fever, chills, and vomiting x1 day. HISTORY OF PRESENT ILLNESS: This is an 88-year-old male, who was brought into the ER for evaluation of fever and chills with vomiting. The patient resides in the assisted living [facility] and he had an episode of fever and chills with low-grade temperature of 100 at the assisted living. The patient was transferred to the emergency room for evaluation. Upon arrival, the patient was noticed to have been febrile with sign of urinary tract infection and possible pneumonia. The patient's workup was consistent with urinary tract infection and questionable pneumonia. The patient received IV antibiotic, cefepime and IV azithromycin. He also noticed to have mild heart failure based on the chest x-ray and elevated BNP. PAST MEDICAL HISTORY: Includes history of diabetes, hypertension, hyperlipidemia, osteoarthritis, and chronic obstructive pulmonary disease. PAST SURGICAL HISTORY: History of hip replacement. FAMILY HISTORY: Nonreactive and noncontributory. SOCIAL HISTORY: The patient denies smoking, alcohol use, or drug use. REVIEW OF SYSTEMS: Negative except for history of present illness, which is nausea, vomiting, and fever and chills. PHYSICAL EXAMINATION: VITAL SIGNS: Include a temperature of 100.0, pulse 82, respirations 22, blood pressure 172/76, and pulse oximetry of 94% on 2% nasal cannula. GENERAL APPEARANCE: Alert and oriented x3. HEENT: Normocephalic, normochromic. Extraocular muscles intact. Throat is clear. NECK: Supple. No lymphadenopathy. LUNGS: Clear to auscultation bilaterally. No crackles. No rales. CARDIOVASCULAR: Regular rate and rhythm. No murmur. No gallop. GASTROINTESTINAL: Soft, nontender, and nondistended. Positive bowel sounds. EXTREMITIES: No edema, cyanosis, or clubbing. NEUROLOGIC: Responds to commands. Alert and oriented x3. SKIN: No rash. LABORATORY AND DIAGNOSTIC DATA: Include WBC 9.3, hemoglobin 16.5, hematocrit 48.3, platelet count 155, neutrophils 88, lymphocytes 7, mono 5, eosinophils 0, and bands 0. Sodium 140, potassium 4.4, chloride 105, carbon dioxide 27, BUN 19, creatinine 0.7, and glucose 121. Lactic acid is 2.3. Calcium 9.1. Total bilirubin 0.6, AST 20, ALT 18, and alkaline phosphatase 87. Total creatine kinase 57. Troponin less than 0.019. BNP is 1599. Albumin 2.8, globulin 3.9. Urine showed +4 protein, +5 occult blood, leukocyte esterase +3, urine rbc too many to count, urine wbc too many to count, squamous cells are few, urine bacteria is moderate. Chest x-ray includes mild congestive heart failure. IMPRESSION: 1. Urinary tract infection. We will continue cefepime and azithromycin to cover for pneumonia as well. Follow up urine culture. 2. Questionable pneumonia. We will continue the above antibiotics and we will recheck chest x-ray as an inpatient. 3. Congestive heart failure. We will start the patient on a low-dose Lasix and monitor the patient. 4. Diabetes mellitus type 2. We will continue home medications. 5. Hypertension. Again, we will continue home medications and adjust medications based on the blood pressure. 6. Hyperlipidemia. Continue home medications. 7. Osteoarthritis. We will monitor for pain management. 8. Generalized weakness, stable at this time. The patient will be admitted for a minimum of two-night stay for the diagnosis of urinary tract infection and possible congestive heart failure. Maribeth Loya M.D. DR: FAUZIA JOB#: [id number] CC: GERBER
[2018-03-11] MEDS: Cefepime HCl 1 GM in D5W 110 ML IVPB SCH ×2 (03:23→15:30)
[2018-03-11 04:00] VITALS: BP 142/53
[2018-03-11 08:00] VITALS: BP 142/56
[2018-03-11 08:13] LABS: BASOPHILS % (AUTO) 0.5 % (0.0-2.0); HEMATOCRIT 45.6 % (42.0-52.0); LYMPHOCYTES % (AUTO) 10.5 % (20.0-45.0); MEAN CORPUSCULAR VOLUME 90 FL (80-99); MONOCYTES % (AUTO) 6.3 % (1.0-10.0); NEUTROPHILS % (AUTO) 82.7 % (45.0-75.0); PLATELET COUNT 137 K/UL (150-450); RED BLOOD COUNT 5.09 M/UL (4.70-6.10); RED CELL DISTRIBUTION WIDTH 12.6 % (11.6-14.8); WHITE BLOOD COUNT 6.1 K/UL (4.8-10.8)
[2018-03-11 08:42] LABS: ANION GAP 8 mmol/L (5-15); BLOOD UREA NITROGEN 19 mg/dL (7-18); CALCIUM 8.6 MG/DL (8.5-10.1); CARBON DIOXIDE 26 MMOL/L (21-32); CHLORIDE 105 MMOL/L (98-107); CREATININE 0.9 MG/DL (0.55-1.30); SODIUM 139 MMOL/L (136-145)
[2018-03-11] MEDS: PARoxetine 20mg tab ORAL SCH (08:44)
[2018-03-11] MEDS: Donepezil 5mg Tab ORAL SCH (08:44)
[2018-03-11] MEDS: Aspirin Baby 81mg ORAL SCH (08:45)
[2018-03-11] MEDS: metFORMIN 500mg tab ORAL SCH ×2 (08:45→18:03)
[2018-03-11] MEDS: Irbesartan 150mg tablet ORAL SCH ×2 (08:46→20:14)
[2018-03-11] MEDS: Metoprolol Succinate XL 50mg tab ORAL SCH (08:48)
[2018-03-11] MEDS: Heparin 5000 units/ml inj SUBQ SCH ×2 (08:49→20:16)
[2018-03-11] MEDS ORDERED: GlipiZIDE 5mg tab ORAL SCH (09:00)
[2018-03-11 12:00] VITALS: BP 119/51
[2018-03-11 15:45] VITALS: BP 148/63
[2018-03-11] MEDS: GlipiZIDE 5mg tab ORAL SCH (18:04)
[2018-03-11] MEDS: Azithromycin 500 MG in D5W 275 ML IV SCH (18:05)
[2018-03-11] MEDS ORDERED: Vancomycin 1250mg/D5W 250ml IVPB SCH (18:45)
[2018-03-11 20:00] VITALS: BP 128/50
[2018-03-11] MEDS: Atorvastatin 20mg tab ORAL SCH (20:14)
--- NOTE | 2018-03-11 20:51 | General Progress Note ---
Assessment/Plan Status: stable Assessment/Plan 1. UTI - cont cefipime 1 gm bid. follow up urine cx. 2. Sepsis - cont cefipime and vanco per ID. follow up cultures. 3. Possible Pnemonia - on cefipime and Azithromycin now. recheck CXR. 4. Mild CHF - Check Echo and cont Lasix 20 mg daily. check BNP in AM. 5. HTN- cont current meds. 6. Hyperlipidemia - cont current med. 7. DM II - change glipizide 2.5 mg bid due to one epidose of hypoglycemia. Subjective Date patient seen: Mar 11, 2018 Time patient seen: 20:20 Constitutional: Reports: weakness HEENT: Reports: no symptoms Cardiovascular: Reports: no symptoms Respiratory: Reports: no symptoms Gastrointestinal/Abdominal: Reports: no symptoms Genitourinary: Reports: no symptoms Neurologic/Psychiatric: Reports: no symptoms Endocrine: Reports: no symptoms Hematologic/Lymphatic: Reports: no symptoms Allergies: Coded Allergies: No Known Allergies (Verified , 03/19/11) Subjective Pt. is lying in bed. No chest pain. he was slightly sob today. His blood culture grow gram neg in pair. No diarrhea. Objective Last 24 Hour Vital Signs Date Time Temp Pulse Resp B/P (MAP) Pulse Ox O2 Delivery O2 Flow Rate FiO2 03/11/18 20:14 148/63 03/11/18 20:00 74 03/11/18 16:30 Nasal Cannula 3.0 32 03/11/18 16:30 94 Nasal Cannula 3.0 32 03/11/18 15:45 99.0 69 20 148/63 94 Nasal Cannula 2.0 99.0 03/11/18 15:42 74 03/11/18 12:00 98.1 74 20 119/51 94 Nasal Cannula 2.0 98.1 03/11/18 12:00 68 03/11/18 08:48 68 142/56 03/11/18 08:47 142/56 03/11/18 08:46 142/56 03/11/18 08:00 67 03/11/18 08:00 99.3 68 20 142/56 94 Nasal Cannula 2.0 99.3 03/11/18 04:00 66 03/11/18 04:00 97.9 65 20 142/53 92 Nasal Cannula 2.0 97.9 03/11/18 00:11 100.0 79 20 136/92 93 Nasal Cannula 2.0 100.0 03/11/18 00:00 78 Intake and Output 03/10/18 03/11/18 19:00 07:00 Intake Total 0 ml Balance 0 ml Intake Oral 0 ml # Voids 1 2 Laboratory Tests 03/11/18 05:47: White Blood Count 6.1, Red Blood Count 5.09, Hemoglobin 15.0, Hematocrit 45.6, Mean Corpuscular Volume 90, Mean Corpuscular Hemoglobin 29.4, Mean Corpuscular Hemoglobin Concent 32.8, Red Cell Distribution Width 12.6, Platelet Count 137L, Mean Platelet Volume 6.8, Neutrophils (%) (Auto) 82.7H, Lymphocytes (%) (Auto) 10.5L, Monocytes (%) (Auto) 6.3, Eosinophils (%) (Auto) 0.0, Basophils (%) (Auto ) 0.5, Sodium Level 139, Potassium Level 4.0, Chloride Level 105, Carbon Dioxide Level 26, Anion Gap 8, Blood Urea Nitrogen 19H, Creatinine 0.9, Estimat Glomerular Filtration Rate , Glucose Level 96, Calcium Level 8.6 Height (Feet): 5 Height (Inches): 10.00 Weight (Pounds): 178 General Appearance: no apparent distress, alert EENT: normal ENT inspection Neck: non-tender, normal alignment, supple Cardiovascular: normal peripheral pulses, normal rate, regular rhythm Respiratory/Chest: chest wall non-tender, lungs clear, normal breath sounds Abdomen: normal bowel sounds, non tender, soft Extremities: normal range of motion, non-tender Edema: no edema noted Arm (L), no edema noted Arm (R), no edema noted Leg (L), no edema noted Leg (R), no edema noted Pedal (L), no edema noted Pedal (R), no edema noted Generalized Neurologic: alert, responsive Skin: warm/dry Lymphatic: normal anterior cervical (L), normal anterior cervical (R), normal posterior cervical (L), normal posterior cervical (R), normal submandibular (L) , normal submandibular (R), normal supraclavicular (L), normal supraclavicular ( R), normal axillary (L), normal axillary (R), normal inguinal (L), normal inguinal (R), normal other AZIZOLLAHI,FARID Mar 11, 2018 20:51
--- NOTE | 2018-03-11 20:56 | Infectious Diseases Prog Note ---
Assessment/Plan Problems: (1) HCAP (healthcare-associated pneumonia) Assessment & Plan: with fever and interstitial infiltrates, will add vancomycin to cover his sepsis too, pending final blood culture results , continue cefepime and azithrmycin empirically , monitor CXR (2) UTI (urinary tract infection) Assessment & Plan: will order urine culture since it was not done, and continue cefepime empirically (3) Sepsis Assessment & Plan: due to the above with gram positive cocci in pairs suspect streptococcus spp VS enterococcus spp , will add vancomycin empirically pending blood culture identification and sensitivity , will order 2D echo to rule out vegetations , and repeat blood culture later to confirm clearance (4) Diabetes Assessment & Plan: recommend tight glycemic control to keep blood glucose between 100-140 Subjective Allergies: Coded Allergies: No Known Allergies (Verified , 03/19/11) Objective Vital Signs Last 24 Hour Vital Signs Date Time Temp Pulse Resp B/P (MAP) Pulse Ox O2 Delivery O2 Flow Rate FiO2 03/11/18 20:14 148/63 03/11/18 20:00 74 03/11/18 16:30 Nasal Cannula 3.0 32 03/11/18 16:30 94 Nasal Cannula 3.0 32 03/11/18 15:45 99.0 69 20 148/63 94 Nasal Cannula 2.0 99.0 03/11/18 15:42 74 03/11/18 12:00 98.1 74 20 119/51 94 Nasal Cannula 2.0 98.1 03/11/18 12:00 68 03/11/18 08:48 68 142/56 03/11/18 08:47 142/56 03/11/18 08:46 142/56 03/11/18 08:00 67 03/11/18 08:00 99.3 68 20 142/56 94 Nasal Cannula 2.0 99.3 03/11/18 04:00 66 03/11/18 04:00 97.9 65 20 142/53 92 Nasal Cannula 2.0 97.9 03/11/18 00:11 100.0 79 20 136/92 93 Nasal Cannula 2.0 100.0 03/11/18 00:00 78 Height (Feet): 5 Height (Inches): 10.00 Weight (Pounds): 178 Microbiology Date/Time Source Procedure Growth Status 03/10/18 14:29 Blood Blood Culture - Preliminary Resulted Laboratory Tests Test 03/11/18 05:47 White Blood Count 6.1 K/UL (4.8-10.8) Red Blood Count 5.09 M/UL (4.70-6.10) Hemoglobin 15.0 G/DL (14.2-18.0) Hematocrit 45.6 % (42.0-52.0) Mean Corpuscular Volume 90 FL (80-99) Mean Corpuscular Hemoglobin 29.4 PG (27.0-31.0) Mean Corpuscular Hemoglobin Concent 32.8 G/DL (32.0-36.0) Red Cell Distribution Width 12.6 % (11.6-14.8) Platelet Count 137 K/UL (150-450) L Mean Platelet Volume 6.8 FL (6.5-10.1) Neutrophils (%) (Auto) 82.7 % (45.0-75.0) H Lymphocytes (%) (Auto) 10.5 % (20.0-45.0) L Monocytes (%) (Auto) 6.3 % (1.0-10.0) Eosinophils (%) (Auto) 0.0 % (0.0-3.0) Basophils (%) (Auto) 0.5 % (0.0-2.0) Sodium Level 139 MMOL/L (136-145) Potassium Level 4.0 MMOL/L (3.5-5.1) Chloride Level 105 MMOL/L (98-107) Carbon Dioxide Level 26 MMOL/L (21-32) Anion Gap 8 mmol/L (5-15) Blood Urea Nitrogen 19 mg/dL (7-18) H Creatinine 0.9 MG/DL (0.55-1.30) Estimat Glomerular Filtration Rate mL/min (>60) Glucose Level 96 MG/DL (74-106) Calcium Level 8.6 MG/DL (8.5-10.1) Current Medications Medications (Trade) Dose Ordered Sig/Breanna Route PRN Reason Start Time Stop Time Status Last Admin Dose Admin Aspirin (ASA) 81 mg DAILY ORAL 03/11/18 09:00 04/10/18 08:59 03/11/18 08:45 Atorvastatin Calcium (Lipitor) 40 mg BEDTIME ORAL 03/10/18 21:00 04/09/18 20:59 03/11/18 20:14 Azithromycin 500 mg/Dextrose 275 ml @ 275 mls/hr DAILY@1630 IV 03/11/18 16:30 03/18/18 23:59 03/11/18 18:05 Cefepime HCl 1 gm/ Dextrose 110 ml @ 220 mls/hr Q12H IVPB 03/11/18 04:00 03/18/18 23:59 03/11/18 15:30 Clonidine HCl (Catapres Tab) 0.1 mg DAILY ORAL 03/11/18 09:00 04/10/18 08:59 Donepezil HCl (Aricept) 5 mg DAILY ORAL 03/11/18 09:00 04/10/18 08:59 03/11/18 08:44 Fexofenadine HCl (Hannah) 60 mg BID ORAL 03/11/18 09:00 04/10/18 08:59 03/11/18 18:04 Furosemide (Lasix) 20 mg DAILY ORAL 03/11/18 09:00 04/10/18 08:59 03/11/18 08:45 Glipizide (Glucotrol) 2.5 mg BID ORAL 03/11/18 18:00 04/10/18 08:59 03/11/18 18:04 Heparin Sodium (Porcine) (Heparin 5000 units/ml) 5,000 units EVERY 12 HOURS SUBQ 03/10/18 21:00 04/09/18 20:59 03/11/18 20:16 Irbesartan (Avapro) 150 mg Q12HR ORAL 03/11/18 09:00 04/10/18 08:59 03/11/18 20:14 Metformin HCl (Glucophage) 1,000 mg BID ORAL 03/11/18 09:00 04/10/18 08:59 03/11/18 18:03 Metoprolol Succinate (Toprol XL) 50 mg DAILY ORAL 03/11/18 09:00 04/10/18 08:59 03/11/18 08:48 Paroxetine HCl (Paxil) 30 mg DAILY ORAL 03/11/18 09:00 04/10/18 08:59 03/11/18 08:44 Vancomycin HCl (Vanco rx to dose) 1 ea DAILY PRN MISC Per rx protocol 03/11/18 17:45 04/10/18 17:44 Vancomycin HCl/ Dextrose 250 ml @ 166.667 mls/hr ONCE IVPB 03/11/18 18:45 03/11/18 21:00 03/11/18 19:34 Vancomycin/Sodium Chloride 250 ml @ 166.667 mls/hr Q12H IVPB 03/12/18 06:30 03/17/18 06:29 Giovani Del Troo M.D. Mar 11, 2018 20:56
[2018-03-12] VITALS: BP 157/52
[2018-03-12] MEDS: Cefepime HCl 1 GM in D5W 110 ML IVPB SCH ×2 (03:14→16:26)
[2018-03-12 04:00] VITALS: BP 145/43
[2018-03-12] MEDS: Vancomycin 750mg/NS 250ml IVPB SCH ×2 (05:51→17:16)
[2018-03-12 08:00] VITALS: BP 153/65
[2018-03-12 08:43] LABS: BASOPHILS % (AUTO) 0.9 % (0.0-2.0); EOSINOPHILS % (AUTO) 1.2 % (0.0-3.0); HEMOGLOBIN 14.7 G/DL (14.2-18.0); LYMPHOCYTES % (AUTO) 22.8 % (20.0-45.0); MEAN CORPUSCULAR VOLUME 89 FL (80-99); MONOCYTES % (AUTO) 10.7 % (1.0-10.0); NEUTROPHILS % (AUTO) 64.3 % (45.0-75.0); PLATELET COUNT 124 K/UL (150-450); RED BLOOD COUNT 4.71 M/UL (4.70-6.10); RED CELL DISTRIBUTION WIDTH 12.4 % (11.6-14.8); WHITE BLOOD COUNT 7.1 K/UL (4.8-10.8)
[2018-03-12] MEDS: metFORMIN 500mg tab ORAL SCH ×2 (08:54→16:45)
[2018-03-12] MEDS: Aspirin Baby 81mg ORAL SCH (08:54)
[2018-03-12] MEDS: Donepezil 5mg Tab ORAL SCH (08:54)
[2018-03-12] MEDS: PARoxetine 20mg tab ORAL SCH (08:56)
[2018-03-12] MEDS: Irbesartan 150mg tablet ORAL SCH ×2 (08:57→20:45)
[2018-03-12] MEDS: Metoprolol Succinate XL 50mg tab ORAL SCH (09:00)
[2018-03-12] MEDS: Heparin 5000 units/ml inj SUBQ SCH ×2 (09:00→20:51)
[2018-03-12] MEDS: GlipiZIDE 5mg tab ORAL SCH ×2 (09:01→16:44)
[2018-03-12 09:16] LABS: ANION GAP 9 mmol/L (5-15); BLOOD UREA NITROGEN 22 mg/dL (7-18); CALCIUM 8.5 MG/DL (8.5-10.1); CARBON DIOXIDE 24 MMOL/L (21-32); CHLORIDE 106 MMOL/L (98-107); CREATININE 0.8 MG/DL (0.55-1.30); SODIUM 139 MMOL/L (136-145)
--- NOTE | 2018-03-12 10:49 | Diagnostic Imaging Report ---
INDICATION: Dyspnea COMPARISON: Chest x-ray dated 03/10/18 FINDINGS: Single frontal view demonstrates a prominent heart size. Increased pulmonary vascular markings suggestive of congestive. No pleural effusions. The visualized osseous structures are within normal limits. IMPRESSION: No significant change. Prominent heart size. Increased pulmonary vascular markings suggestive of congestive.
[2018-03-12] MEDS ORDERED: Tubing IV Secondary IV ONE ×2 (10:55→11:09)
[2018-03-12] MEDS ORDERED: NS 275ml ONE (10:55)
--- NOTE | 2018-03-12 11:40 | Infectious Diseases Prog Note ---
Assessment/Plan Problems: (1) HCAP (healthcare-associated pneumonia) Assessment & Plan: with fever and interstitial infiltrates, rule out aspiration , will order swallow eval and switch diet to nector thickened , continue vancomycin to cover his sepsis too, pending final blood culture results , continue cefepime and azithrmycin empirically , monitor CXR (2) UTI (urinary tract infection) Assessment & Plan: await urine culture , and continue cefepime empirically (3) Sepsis Assessment & Plan: due to the above with gram positive cocci in pairs suspect streptococcus spp VS enterococcus spp , will continue vancomycin empirically pending blood culture identification and sensitivity , will order 2D echo to rule out vegetations , and repeat blood culture later to confirm clearance (4) Diabetes Assessment & Plan: recommend tight glycemic control to keep blood glucose between 100-140 (5) Aspiration of food Assessment & Plan: with episodes of cough while eating , will order swallow eval and switch his diet to nector thickened Subjective Constitutional: Reports: no symptoms HEENT: Reports: no symptoms Respiratory: Reports: dry cough Breasts: Reports: no symptoms Cardiovascular: Reports: no symptoms Gastrointestinal/Abdominal: Reports: no symptoms Genitourinary: Reports: no symptoms Neurologic: Reports: no symptoms Psychiatric: Reports: no symptoms Skin: Reports: no symptoms Endocrine: Reports: no symptoms Hematologic: Reports: no symptoms Musculoskeletal: Reports: no symptoms Allergies: Coded Allergies: No Known Allergies (Verified , 03/19/11) Subjective he was awake and responsive, follows commands, had several episodes of cough when he was eating as per the [employer] Objective Vital Signs Last 24 Hour Vital Signs Date Time Temp Pulse Resp B/P (MAP) Pulse Ox O2 Delivery O2 Flow Rate FiO2 03/12/18 08:57 137/53 03/12/18 08:56 137/53 03/12/18 08:00 97.3 61 20 153/65 97 Nasal Cannula 2.0 97.3 03/12/18 08:00 70 03/12/18 04:00 67 03/12/18 04:00 97.0 61 24 145/43 94 Nasal Cannula 2.0 97.0 03/12/18 00:00 97.1 66 26 157/52 95 Nasal Cannula 2.0 97.1 03/12/18 00:00 59 03/11/18 20:14 148/63 03/11/18 20:00 74 03/11/18 20:00 99.9 72 20 128/50 94 Nasal Cannula 2.0 99.9 03/11/18 16:30 Nasal Cannula 3.0 32 03/11/18 16:30 94 Nasal Cannula 3.0 32 03/11/18 15:45 99.0 69 20 148/63 94 Nasal Cannula 2.0 99.0 03/11/18 15:42 74 03/11/18 12:00 98.1 74 20 119/51 94 Nasal Cannula 2.0 98.1 03/11/18 12:00 68 Height (Feet): 5 Height (Inches): 10.00 Weight (Pounds): 178 General Appearance: WD/WN, no acute distress HEENT: normocephalic, atraumatic, anicteric, mucous membranes moist, PERRL Respiratory/Chest: chest wall non-tender, lungs clear, no respiratory distress , no accessory muscle use, decreased breath sounds Cardiovascular: normal peripheral pulses, normal rate, regular rhythm, no gallop/murmur, no JVD Abdomen: normal bowel sounds, soft, non tender, no organomegaly, non distended , no mass, no scars Genitourinary: normal external genitalia Extremities: no cyanosis, no clubbing Skin: no rash, no lesions, no ulcers Neurologic/Psychiatric: alert, responsive Musculoskeletal: normal muscle bulk, no effusion Microbiology Date/Time Source Procedure Growth Status 03/10/18 14:29 Blood Blood Culture - Preliminary Resulted 03/10/18 14:25 Blood Blood Culture - Preliminary NO GROWTH AFTER 24 HOURS Resulted 03/10/18 15:17 Nasal Nares MRSA Culture - Final NO METHICILLIN RESISTANT STAPH AUREUS... Complete 03/10/18 14:29 Urine,Clean Catch Urine Culture - Preliminary Resulted 03/10/18 15:17 Rectum VRE Culture - Final NO VANCOMYCIN RESISTANT ENTEROCOCCUS ... Complete Laboratory Tests Test 03/12/18 07:40 White Blood Count 7.1 K/UL (4.8-10.8) Red Blood Count 4.71 M/UL (4.70-6.10) Hemoglobin 14.7 G/DL (14.2-18.0) Hematocrit 42.0 % (42.0-52.0) Mean Corpuscular Volume 89 FL (80-99) Mean Corpuscular Hemoglobin 31.2 PG (27.0-31.0) H Mean Corpuscular Hemoglobin Concent 34.9 G/DL (32.0-36.0) Red Cell Distribution Width 12.4 % (11.6-14.8) Platelet Count 124 K/UL (150-450) L Mean Platelet Volume 7.0 FL (6.5-10.1) Neutrophils (%) (Auto) 64.3 % (45.0-75.0) Lymphocytes (%) (Auto) 22.8 % (20.0-45.0) Monocytes (%) (Auto) 10.7 % (1.0-10.0) H Eosinophils (%) (Auto) 1.2 % (0.0-3.0) Basophils (%) (Auto) 0.9 % (0.0-2.0) Sodium Level 139 MMOL/L (136-145) Potassium Level 4.0 MMOL/L (3.5-5.1) Chloride Level 106 MMOL/L (98-107) Carbon Dioxide Level 24 MMOL/L (21-32) Anion Gap 9 mmol/L (5-15) Blood Urea Nitrogen 22 mg/dL (7-18) H Creatinine 0.8 MG/DL (0.55-1.30) Estimat Glomerular Filtration Rate mL/min (>60) Glucose Level 86 MG/DL (74-106) Calcium Level 8.5 MG/DL (8.5-10.1) Pro-B-Type Natriuretic Peptide 2094 pg/mL (0-125) H Current Medications Medications (Trade) Dose Ordered Sig/Breanna Route PRN Reason Start Time Stop Time Status Last Admin Dose Admin Aspirin (ASA) 81 mg DAILY ORAL 03/11/18 09:00 04/10/18 08:59 03/12/18 08:54 Atorvastatin Calcium (Lipitor) 40 mg BEDTIME ORAL 03/10/18 21:00 04/09/18 20:59 03/11/18 20:14 Azithromycin 500 mg/Dextrose 275 ml @ 275 mls/hr DAILY@1630 IV 03/11/18 16:30 03/18/18 23:59 03/11/18 18:05 Cefepime HCl 1 gm/ Dextrose 110 ml @ 220 mls/hr Q12H IVPB 03/11/18 04:00 03/18/18 23:59 03/12/18 03:14 Clonidine HCl (Catapres Tab) 0.1 mg DAILY ORAL 03/11/18 09:00 04/10/18 08:59 03/12/18 08:56 Donepezil HCl (Aricept) 5 mg DAILY ORAL 03/11/18 09:00 04/10/18 08:59 03/12/18 08:54 Fexofenadine HCl (Hannah) 60 mg BID ORAL 03/11/18 09:00 04/10/18 08:59 03/12/18 08:53 Furosemide (Lasix) 20 mg DAILY ORAL 03/11/18 09:00 04/10/18 08:59 03/12/18 08:55 Glipizide (Glucotrol) 2.5 mg BID ORAL 03/11/18 18:00 04/10/18 08:59 03/12/18 09:01 Heparin Sodium (Porcine) (Heparin 5000 units/ml) 5,000 units EVERY 12 HOURS SUBQ 03/10/18 21:00 04/09/18 20:59 03/11/18 20:16 Irbesartan (Avapro) 150 mg Q12HR ORAL 03/11/18 09:00 04/10/18 08:59 03/12/18 08:57 Metformin HCl (Glucophage) 1,000 mg BID ORAL 03/11/18 09:00 04/10/18 08:59 03/12/18 08:54 Metoprolol Succinate (Toprol XL) 50 mg DAILY ORAL 03/11/18 09:00 04/10/18 08:59 03/11/18 08:48 Paroxetine HCl (Paxil) 30 mg DAILY ORAL 03/11/18 09:00 04/10/18 08:59 03/12/18 08:56 Vancomycin HCl (Vanco rx to dose) 1 ea DAILY PRN MISC Per rx protocol 03/11/18 17:45 04/10/18 17:44 Vancomycin/Sodium Chloride 250 ml @ 166.667 mls/hr Q12H IVPB 03/12/18 06:30 03/17/18 06:29 03/12/18 05:51 Giovani Del Toro M.D. Mar 12, 2018 11:40
[2018-03-12 12:00] VITALS: BP 130/82
--- NOTE | 2018-03-12 12:34 | General Progress Note ---
Assessment/Plan Status: stable Assessment/Plan 1. UTI - cont cefipime 1 gm bid. follow up urine cx. 2. Sepsis - cont cefipime and vanco per ID. follow up cultures. 3. Possible Pnemonia - on cefipime and Azithromycin now. CXR didn't show any change. 4. Mild CHF - Echo result pending. Cont Lasix 20 mg daily. check BNP in AM. 5. HTN- controlled. cont current meds. 6. Hyperlipidemia - cont current med. 7. DM II - cont glipizide 2.5 mg bid. 8. Generalized weakness - PT and OT eval and Treatment ordered. Subjective Date patient seen: Mar 12, 2018 Time patient seen: 12:00 Constitutional: Reports: weakness HEENT: Reports: no symptoms Cardiovascular: Reports: no symptoms Respiratory: Reports: cough Gastrointestinal/Abdominal: Reports: no symptoms Genitourinary: Reports: no symptoms Neurologic/Psychiatric: Reports: no symptoms Endocrine: Reports: no symptoms Hematologic/Lymphatic: Reports: no symptoms Allergies: Coded Allergies: No Known Allergies (Verified , 03/19/11) Subjective Pt. is lying in bed. No chest pain or SOB. afebrile and denies any nausea or vomiting. Objective Last 24 Hour Vital Signs Date Time Temp Pulse Resp B/P (MAP) Pulse Ox O2 Delivery O2 Flow Rate FiO2 03/12/18 12:00 97.6 58 20 130/82 97 Nasal Cannula 2.0 97.6 03/12/18 08:57 137/53 03/12/18 08:56 137/53 03/12/18 08:00 97.3 61 20 153/65 97 Nasal Cannula 2.0 97.3 03/12/18 08:00 70 03/12/18 04:00 67 03/12/18 04:00 97.0 61 24 145/43 94 Nasal Cannula 2.0 97.0 03/12/18 00:00 97.1 66 26 157/52 95 Nasal Cannula 2.0 97.1 03/12/18 00:00 59 03/11/18 20:14 148/63 03/11/18 20:00 74 03/11/18 20:00 99.9 72 20 128/50 94 Nasal Cannula 2.0 99.9 03/11/18 16:30 Nasal Cannula 3.0 32 03/11/18 16:30 94 Nasal Cannula 3.0 32 03/11/18 15:45 99.0 69 20 148/63 94 Nasal Cannula 2.0 99.0 03/11/18 15:42 74 Intake and Output 03/11/18 03/12/18 19:00 07:00 Intake Total 360 ml 0 ml Balance 360 ml 0 ml Intake Oral 360 ml 0 ml # Voids 3 2 # Bowel Movements 1 Laboratory Tests 03/12/18 07:40: White Blood Count 7.1, Red Blood Count 4.71, Hemoglobin 14.7, Hematocrit 42.0, Mean Corpuscular Volume 89, Mean Corpuscular Hemoglobin 31.2H, Mean Corpuscular Hemoglobin Concent 34.9, Red Cell Distribution Width 12.4, Platelet Count 124L, Mean Platelet Volume 7.0, Neutrophils (%) (Auto) 64.3, Lymphocytes (%) (Auto) 22.8, Monocytes (%) (Auto) 10.7H, Eosinophils (%) (Auto) 1.2, Basophils (%) ( Auto) 0.9, Sodium Level 139, Potassium Level 4.0, Chloride Level 106, Carbon Dioxide Level 24, Anion Gap 9, Blood Urea Nitrogen 22H, Creatinine 0.8, Estimat Glomerular Filtration Rate , Glucose Level 86, Calcium Level 8.5, Pro-B-Type Natriuretic Peptide 2094H Height (Feet): 5 Height (Inches): 10.00 Weight (Pounds): 178 General Appearance: no apparent distress, alert Neck: non-tender, normal alignment, supple Cardiovascular: normal rate, regular rhythm Respiratory/Chest: lungs clear, normal breath sounds, no respiratory distress Abdomen: normal bowel sounds, non tender, soft Extremities: normal range of motion, non-tender Edema: no edema noted Arm (L), no edema noted Arm (R), no edema noted Leg (L), no edema noted Leg (R), no edema noted Pedal (L), no edema noted Pedal (R), no edema noted Generalized Neurologic: alert, responsive Skin: warm/dry Lymphatic: normal anterior cervical (L), normal anterior cervical (R), normal posterior cervical (L), normal posterior cervical (R), normal submandibular (L) , normal submandibular (R), normal supraclavicular (L), normal supraclavicular ( R), normal axillary (L), normal axillary (R), normal inguinal (L), normal inguinal (R), normal other ROSIE DUNCAN Mar 12, 2018 12:34
[2018-03-12 16:00] VITALS: BP 140/55
--- NOTE | 2018-03-12 16:13 | Cardiology Report ---
APPROVED REPORT EXAM: Two-dimensional and M-mode echocardiogram with Doppler and color Doppler. INDICATION Congestive Heart Failure M-Mode DIMENSIONS IVSd1.1 (0.7-1.1cm)Left Atrium (MM)4.5 (1.6-4.0cm) LVDd5.5 (3.5-5.6cm)Aortic Root3.3 (2.0-3.7cm) PWd1.5 (0.7-1.1cm)Aortic Cusp Exc.1.7 (1.5-2.0cm) IVSs1.1 cm LVDs3.9 (2.5-4.0cm) PWs1.3 cm Normal left ventricular chamber size, systolic function and wall motion. Left ventricular ejection fraction estimated to be 60-65%. No evidence of left ventricular hypertrophy. No evidence of pericardial or pleural effusion. Right cardiac chamber sizes are within normal limits. Mild left atrial enlargement by 2D. Focal aortic valve sclerosis with adequate cusp excursion. Thickened mitral valve leaflets with normal excursion. Mild mitral annulus and aortic root calcification. Pulmonic valve not well visualized. Normal tricuspid valve structure. IVC is normal in size and collapsible with respiration. A color flow and spectral Doppler study was performed and revealed: Mild aortic regurgitation. Trace mitral regurgitation. Mitral diastolic velocities suggest reduced left ventricular relaxation c/w diastolic dysfunction grade 1. Trace tricuspid regurgitation.
[2018-03-12] MEDS: Azithromycin 500 MG in D5W 275 ML IV SCH (16:26)
--- NOTE | 2018-03-12 17:03 | Cardiology Report ---
APPROVED REPORT EKG Measurement Heart [id number] Sinus rhythm with 1st degree AV block Pulmonary disease pattern Left anterior fascicular block Voltage criteria for left ventricular hypertrophy Nonspecific ST abnormality Abnormal ECG
[2018-03-12 20:00] VITALS: BP 115/57
[2018-03-12] MEDS: Atorvastatin 20mg tab ORAL SCH (20:47)
--- NOTE | 2018-03-12 22:30 | Consultation ---
DATE OF CONSULTATION: 03/11/2018 INFECTIOUS DISEASES CONSULTATION CONSULTING PHYSICIAN: Giovani Del Toro M.D. REQUESTING PHYSICIAN: Maribeth Loya M.D. REASON FOR CONSULTATION: Pneumonia, UTI, and sepsis due to gram-positive cocci in pairs, recommendation for antibiotics treatment and further management. HISTORY OF PRESENT ILLNESS: The patient is an 88-year-old male with past medical history of diabetes, hypertension, hyperlipidemia, osteoarthritis, and COPD, and he was sent from assisted living at [facility] to [facility] emergency room for fever, chills, and a temperature of 100 degrees at the assisted living. The patient has been febrile with symptom of urinary tract infection. He was also coughing at the [facility]. The patient had extensive workup in the emergency room including a chest x-ray, which showed interstitial infiltration suspicious for CHF versus pneumonia. Urinalysis showed evidence of infection. The patient had blood culture obtained in the emergency room and he was started empirically on cefepime and azithromycin by the admitting team and was admitted to the hospital. Today, his blood culture is growing gram-positive cocci in pairs. So, Infectious Disease consultation was requested for further evaluation and management of his sepsis, pneumonia, and UTI. As of note, the patient is poor historian. History was mainly obtained from the medical record and nursing staff. PAST MEDICAL HISTORY: Significant for diabetes, hypertension, hyperlipidemia, osteoarthritis, and COPD. PAST SURGICAL HISTORY: He had hip replacement. MEDICATIONS: The patient is currently on azithromycin and cefepime. For the rest of his medications, please refer to MAR. ALLERGIES: He has no known drug allergy. SOCIAL HISTORY: The patient lives at the [facility]. Denied using any drugs, tobacco, or alcohol. FAMILY HISTORY: Negative for recurrent infection or immunocompromised condition. REVIEW OF SYSTEMS: Unable to obtain. The patient cannot provide good history. PHYSICAL EXAMINATION: VITAL SIGNS: Temperature 99.9 degrees, pulse 74, respirations 20, blood pressure 128/50, and saturation 94% on two liters nasal cannula. GENERAL: Elderly male, lying in bed, awake, responsive, hard of hearing, not in acute distress. HEENT: Normocephalic and atraumatic. Pupils are reactive to light equally. Pale sclera. Dry oral mucosa. No exudate or thrush. NECK: Supple. No lymphadenopathy. CARDIOVASCULAR: Regular rate and rhythm. No murmur or gallop. LUNGS: He had diminished breathing sounds at the bases with wheezing. Normal breathing efforts. ABDOMEN: Soft, nontender, and nondistended. Normal bowel sounds. No hepatosplenomegaly or ascites. EXTREMITIES: No edema or cyanosis. SKIN: No rash. No hives. LABORATORY AND DIAGNOSTIC DATA: Showed white count of 6.1, hemoglobin of 15, and platelet count of 137,000. BUN of 19 and creatinine of 0.9. Lactic acid of 220. Urinalysis showed +3 leukocyte esterase, too numerous to count WBC, and moderate amount of bacteria. Microbiology, blood culture, preliminary is growing gram-positive cocci in pairs from the anaerobic bottle. Blood culture second set is pending. Urine culture so far negative to date. Imaging, chest x-ray on admission showed interstitial edema, suspect CHF. Repeated chest x-ray today showed increased pulmonary vascular markings suggestive of congestive and prominent heart size. ASSESSMENT AND RECOMMENDATION: 1. Healthcare-acquired pneumonia with interstitial infiltrates and fever. We will add vancomycin to cover for his sepsis too, which is growing gram-positive cocci. Pending final blood culture results, identification, and sensitivity, continue cefepime and azithromycin empirically to cover for his pneumonia and atypical organism. Monitor chest x-ray. 2. Urinary tract infection. We will order urine culture since it was not done and continue cefepime empiric coverage for now pending culture. 3. Sepsis with gram-positive cocci in pairs. Suspect Streptococcus species versus Enterococcus species. We will add vancomycin empirically pending blood culture identification and sensitivity. We will order echocardiogram to rule out vegetations if not done yet and repeat blood culture later to confirm clearance. 4. Diabetes. Recommend tight glycemic control to keep blood glucose between 100 to 140. 5. Possible aspiration with cough during eating. Confirm with the . We will order swallow evaluation and switch his diet to thickened liquid and nectar pending swallow evaluation. Keep head of bed more than 30-degree all the time with aspiration precaution. Thank you for the consult. Infectious Disease will continue to follow. Giovani Del Toro M.D. DR: Jose Rafael JOB#: [id number] CC:
[2018-03-13] VITALS: BP 158/54
[2018-03-13 04:00] VITALS: BP 141/40
[2018-03-13] MEDS: Cefepime HCl 1 GM in D5W 110 ML IVPB SCH ×2 (04:12→15:10)
[2018-03-13] MEDS: Vancomycin 750mg/NS 250ml IVPB SCH (05:37)
[2018-03-13 07:07] LABS: BASOPHILS % (AUTO) 0.7 % (0.0-2.0); EOSINOPHILS % (AUTO) 4.2 % (0.0-3.0); HEMATOCRIT 39.8 % (42.0-52.0); HEMOGLOBIN 13.2 G/DL (14.2-18.0); LYMPHOCYTES % (AUTO) 21.2 % (20.0-45.0); MEAN CORPUSCULAR VOLUME 89 FL (80-99); NEUTROPHILS % (AUTO) 64.9 % (45.0-75.0); PLATELET COUNT 127 K/UL (150-450); RED BLOOD COUNT 4.48 M/UL (4.70-6.10); RED CELL DISTRIBUTION WIDTH 12.5 % (11.6-14.8); WHITE BLOOD COUNT 5.8 K/UL (4.8-10.8)
[2018-03-13 08:00] VITALS: BP 145/62
[2018-03-13] MEDS: Heparin 5000 units/ml inj SUBQ SCH ×2 (09:00→20:55)
[2018-03-13] MEDS: Donepezil 5mg Tab ORAL SCH (09:04)
[2018-03-13] MEDS: PARoxetine 20mg tab ORAL SCH (09:04)
[2018-03-13] MEDS: Irbesartan 150mg tablet ORAL SCH ×2 (09:05→20:32)
[2018-03-13] MEDS: GlipiZIDE 5mg tab ORAL SCH ×2 (09:05→18:36)
[2018-03-13] MEDS: metFORMIN 500mg tab ORAL SCH ×2 (09:05→18:36)
[2018-03-13] MEDS: Aspirin Baby 81mg ORAL SCH (09:05)
[2018-03-13] MEDS: Metoprolol Succinate XL 50mg tab ORAL SCH (09:06)
[2018-03-13 12:00] VITALS: BP 139/46
--- NOTE | 2018-03-13 14:33 | Infectious Diseases Prog Note ---
Assessment/Plan Problems: (1) HCAP (healthcare-associated pneumonia) Assessment & Plan: with fever and interstitial infiltrates, suspect aspiration , had swallow eval and continue on nector thickened liquids , will continue vancomycin to cover his sepsis due to enterococcus spp too, pending final blood culture results , continue cefepime and azithrmycin empirically , monitor CXR (2) UTI (urinary tract infection) Assessment & Plan: await urine culture , and continue cefepime empirically (3) Sepsis Assessment & Plan: due to the above with Enterococcus spp , source ? will continue vancomycin empirically pending identification and sensitivity , 2D echo didn't show any vegetations , repeated blood culture to confirm clearance is pending (4) Diabetes Assessment & Plan: recommend tight glycemic control to keep blood glucose between 100-140 (5) Aspiration of food Assessment & Plan: with episodes of cough while eating , had swallow eval and was continue on the current diet he is on with nector thickened liquids, for vedio swallow eval to rule out silent aspiration Subjective Constitutional: Reports: no symptoms HEENT: Reports: no symptoms Respiratory: Reports: no symptoms Breasts: Reports: no symptoms Cardiovascular: Reports: no symptoms Gastrointestinal/Abdominal: Reports: no symptoms Genitourinary: Reports: no symptoms Neurologic: Reports: no symptoms Psychiatric: Reports: no symptoms Skin: Reports: no symptoms Endocrine: Reports: no symptoms Hematologic: Reports: no symptoms Musculoskeletal: Reports: no symptoms Allergies: Coded Allergies: No Known Allergies (Verified , 03/19/11) Subjective he was doing well, awake and responsive, follows commands, no cough or SOB, no nausea or vomiting . tolerated nectar thickened diet well Objective Vital Signs Last 24 Hour Vital Signs Date Time Temp Pulse Resp B/P (MAP) Pulse Ox O2 Delivery O2 Flow Rate FiO2 03/13/18 12:00 97.4 73 20 139/46 97 Nasal Cannula 2.0 28 97.4 03/13/18 09:06 73 145/62 03/13/18 09:06 145/62 03/13/18 09:05 145/62 03/13/18 08:00 71 03/13/18 08:00 97.6 73 20 145/62 97 Nasal Cannula 2.0 28 97.6 03/13/18 04:00 70 03/13/18 04:00 97.8 62 20 141/40 97 Nasal Cannula 2.0 97.8 03/13/18 00:00 97.6 57 20 158/54 97 Nasal Cannula 2.0 97.6 03/13/18 00:00 63 03/12/18 20:45 115/57 03/12/18 20:00 68 03/12/18 20:00 97.6 63 20 115/57 97 Nasal Cannula 2.0 97.6 03/12/18 19:30 Nasal Cannula 2.0 28 03/12/18 19:30 95 Nasal Cannula 2.0 28 03/12/18 16:00 97.3 60 20 140/55 98 Nasal Cannula 2.0 97.3 03/12/18 16:00 65 Height (Feet): 5 Height (Inches): 10.00 Weight (Pounds): 178 General Appearance: WD/WN, no acute distress HEENT: normocephalic, atraumatic, anicteric, mucous membranes moist, PERRL Respiratory/Chest: chest wall non-tender, lungs clear, no respiratory distress , no accessory muscle use, decreased breath sounds, crackles/rales Breasts: no masses Cardiovascular: normal peripheral pulses, normal rate, regular rhythm, no gallop/murmur, no JVD Abdomen: normal bowel sounds, soft, non tender, no organomegaly, non distended , no mass, no scars Genitourinary: normal external genitalia Extremities: no cyanosis, no clubbing Skin: no rash, no lesions Neurologic/Psychiatric: alert, responsive Lymphatic: no neck adenopathy, no groin adenopathy Microbiology Date/Time Source Procedure Growth Status 03/10/18 14:29 Blood Blood Culture - Preliminary Streptococcus Species Resulted 03/10/18 14:25 Blood Blood Culture - Preliminary NO GROWTH AFTER 48 HOURS Resulted 03/10/18 15:17 Nasal Nares MRSA Culture - Final NO METHICILLIN RESISTANT STAPH AUREUS... Complete 03/10/18 14:29 Urine,Clean Catch Urine Culture - Preliminary Resulted 03/10/18 15:17 Rectum VRE Culture - Final NO VANCOMYCIN RESISTANT ENTEROCOCCUS ... Complete Laboratory Tests Test 03/13/18 05:30 03/13/18 06:10 Vancomycin Level Trough 11.2 ug/mL (5.0-12.0) White Blood Count 5.8 K/UL (4.8-10.8) Red Blood Count 4.48 M/UL (4.70-6.10) L Hemoglobin 13.2 G/DL (14.2-18.0) L Hematocrit 39.8 % (42.0-52.0) L Mean Corpuscular Volume 89 FL (80-99) Mean Corpuscular Hemoglobin 29.5 PG (27.0-31.0) Mean Corpuscular Hemoglobin Concent 33.1 G/DL (32.0-36.0) Red Cell Distribution Width 12.5 % (11.6-14.8) Platelet Count 127 K/UL (150-450) L Mean Platelet Volume 7.8 FL (6.5-10.1) Neutrophils (%) (Auto) 64.9 % (45.0-75.0) Lymphocytes (%) (Auto) 21.2 % (20.0-45.0) Monocytes (%) (Auto) 9.0 % (1.0-10.0) Eosinophils (%) (Auto) 4.2 % (0.0-3.0) H Basophils (%) (Auto) 0.7 % (0.0-2.0) Pro-B-Type Natriuretic Peptide 810 pg/mL (0-125) H Current Medications Medications (Trade) Dose Ordered Sig/Breanna Route PRN Reason Start Time Stop Time Status Last Admin Dose Admin Aspirin (ASA) 81 mg DAILY ORAL 03/11/18 09:00 04/10/18 08:59 03/13/18 09:05 Atorvastatin Calcium (Lipitor) 40 mg BEDTIME ORAL 03/10/18 21:00 04/09/18 20:59 03/12/18 20:47 Azithromycin 500 mg/Dextrose 275 ml @ 275 mls/hr DAILY@1630 IV 03/11/18 16:30 03/18/18 23:59 03/12/18 16:26 Cefepime HCl 1 gm/ Dextrose 110 ml @ 220 mls/hr Q12H IVPB 03/11/18 04:00 03/18/18 23:59 03/13/18 04:12 Clonidine HCl (Catapres Tab) 0.1 mg DAILY ORAL 03/11/18 09:00 04/10/18 08:59 03/13/18 09:06 Donepezil HCl (Aricept) 5 mg DAILY ORAL 03/11/18 09:00 04/10/18 08:59 03/13/18 09:04 Fexofenadine HCl (Hannah) 60 mg BID ORAL 03/11/18 09:00 04/10/18 08:59 03/13/18 09:05 Furosemide (Lasix) 20 mg DAILY ORAL 03/11/18 09:00 04/10/18 08:59 03/13/18 09:04 Glipizide (Glucotrol) 2.5 mg BID ORAL 03/11/18 18:00 04/10/18 08:59 03/13/18 09:05 Heparin Sodium (Porcine) (Heparin 5000 units/ml) 5,000 units EVERY 12 HOURS SUBQ 03/10/18 21:00 04/09/18 20:59 03/12/18 20:51 Irbesartan (Avapro) 150 mg Q12HR ORAL 03/11/18 09:00 04/10/18 08:59 03/13/18 09:05 Metformin HCl (Glucophage) 1,000 mg BID ORAL 03/11/18 09:00 04/10/18 08:59 03/13/18 09:05 Metoprolol Succinate (Toprol XL) 50 mg DAILY ORAL 03/11/18 09:00 04/10/18 08:59 03/13/18 09:06 Paroxetine HCl (Paxil) 30 mg DAILY ORAL 03/11/18 09:00 04/10/18 08:59 03/13/18 09:04 Vancomycin HCl (Vanco rx to dose) 1 ea DAILY PRN MISC Per rx protocol 03/11/18 17:45 04/10/18 17:44 Vancomycin HCl 1 gm/Dextrose 275 ml @ 183.708 mls/hr Q12H IVPB 03/13/18 17:00 03/18/18 16:59 Giovani Del Toro M.D. Mar 13, 2018 14:33
[2018-03-13 16:00] VITALS: BP 151/56
[2018-03-13] MEDS: Azithromycin 500 MG in D5W 275 ML IV SCH (16:03)
[2018-03-13] MEDS ORDERED: Vancomycin 1gm/D5W 275ml IVPB SCH ×2 (17:00)
--- NOTE | 2018-03-13 17:03 | General Progress Note ---
Assessment/Plan Status: stable Assessment/Plan 1. UTI - cont cefipime 1 gm bid. follow up urine cx. 2. Sepsis - cont cefipime and vanco per ID. follow up cultures. 3. Possible Pnemonia - on cefipime and Azithromycin now. CXR didn't show any change. 4. Mild CHF - Echo showed EF 60-65%. D/C Lasix 20 mg daily. check BNP in AM. 5. HTN- slightly hypotensive today. will d/c lasix and change clonidine 0.1 mg to PRN. 6. Hyperlipidemia - cont current med. 7. DM II - cont glipizide 2.5 mg bid. 8. Generalized weakness - PT and OT done. will consider intermediate for physical therapy for discharge. Subjective Date patient seen: Mar 13, 2018 Time patient seen: 04:35 Constitutional: Reports: weakness HEENT: Reports: no symptoms Cardiovascular: Reports: no symptoms Respiratory: Reports: no symptoms Gastrointestinal/Abdominal: Reports: no symptoms Genitourinary: Reports: no symptoms Neurologic/Psychiatric: Reports: no symptoms Endocrine: Reports: no symptoms Hematologic/Lymphatic: Reports: no symptoms Allergies: Coded Allergies: No Known Allergies (Verified , 03/19/11) Subjective Pt. is lying in bed. No chest pain or SOB. afebrile and denies any nausea or vomiting. Objective Last 24 Hour Vital Signs Date Time Temp Pulse Resp B/P (MAP) Pulse Ox O2 Delivery O2 Flow Rate FiO2 03/13/18 12:00 97.4 73 20 139/46 97 Nasal Cannula 2.0 28 97.4 03/13/18 12:00 67 03/13/18 09:06 73 145/62 03/13/18 09:06 145/62 03/13/18 09:05 145/62 03/13/18 08:00 71 03/13/18 08:00 97.6 73 20 145/62 97 Nasal Cannula 2.0 28 97.6 03/13/18 04:00 70 03/13/18 04:00 97.8 62 20 141/40 97 Nasal Cannula 2.0 97.8 03/13/18 00:00 97.6 57 20 158/54 97 Nasal Cannula 2.0 97.6 03/13/18 00:00 63 03/12/18 20:45 115/57 03/12/18 20:00 68 03/12/18 20:00 97.6 63 20 115/57 97 Nasal Cannula 2.0 97.6 03/12/18 19:30 Nasal Cannula 2.0 28 03/12/18 19:30 95 Nasal Cannula 2.0 28 Intake and Output 03/12/18 03/13/18 19:00 07:00 Intake Total 700 ml Balance 700 ml Intake Oral 700 ml # Voids 3 1 # Bowel Movements 1 2 Laboratory Tests 03/13/18 05:30: Vancomycin Level Trough 11.2 03/13/18 06:10: White Blood Count 5.8, Red Blood Count 4.48L, Hemoglobin 13.2L, Hematocrit 39.8L , Mean Corpuscular Volume 89, Mean Corpuscular Hemoglobin 29.5, Mean Corpuscular Hemoglobin Concent 33.1, Red Cell Distribution Width 12.5, Platelet Count 127L, Mean Platelet Volume 7.8, Neutrophils (%) (Auto) 64.9, Lymphocytes ( %) (Auto) 21.2, Monocytes (%) (Auto) 9.0, Eosinophils (%) (Auto) 4.2H, Basophils (%) (Auto) 0.7, Pro-B-Type Natriuretic Peptide 810H Height (Feet): 5 Height (Inches): 10.00 Weight (Pounds): 178 General Appearance: no apparent distress, alert Neck: non-tender, normal alignment, supple Cardiovascular: normal peripheral pulses, normal rate, regular rhythm Respiratory/Chest: chest wall non-tender, lungs clear, normal breath sounds Abdomen: normal bowel sounds, non tender, soft Extremities: normal range of motion, non-tender Edema: no edema noted Arm (L), no edema noted Arm (R), no edema noted Leg (L), no edema noted Leg (R), no edema noted Pedal (L), no edema noted Pedal (R), no edema noted Generalized Neurologic: alert, oriented x 3, responsive Skin: warm/dry Lymphatic: normal anterior cervical (L), normal anterior cervical (R), normal posterior cervical (L), normal posterior cervical (R), normal submandibular (L) , normal submandibular (R), normal supraclavicular (L), normal supraclavicular ( R), normal axillary (L), normal axillary (R), normal inguinal (L), normal inguinal (R), normal other ROSIE DUNCAN Mar 13, 2018 17:03
[2018-03-13 20:30] VITALS: BP 149/57
[2018-03-13] MEDS: Atorvastatin 20mg tab ORAL SCH (20:31)
[2018-03-14 00:41] VITALS: BP 152/69
[2018-03-14] MEDS: Cefepime HCl 1 GM in D5W 110 ML IVPB SCH ×2 (03:39→16:08)
[2018-03-14 04:37] VITALS: BP 153/74
[2018-03-14] MEDS: Vancomycin 1 GM in D5W 275 ML IVPB SCH ×2 (04:39→18:25)
[2018-03-14 06:55] LABS: ANION GAP 6 mmol/L (5-15); BLOOD UREA NITROGEN 13 mg/dL (7-18); CALCIUM 8.5 MG/DL (8.5-10.1); CARBON DIOXIDE 29 MMOL/L (21-32); CHLORIDE 105 MMOL/L (98-107); CREATININE 0.7 MG/DL (0.55-1.30); SODIUM 139 MMOL/L (136-145)
[2018-03-14 07:05] LABS: BASOPHILS % (AUTO) 0.9 % (0.0-2.0); EOSINOPHILS % (AUTO) 4.7 % (0.0-3.0); HEMATOCRIT 39.5 % (42.0-52.0); HEMOGLOBIN 13.9 G/DL (14.2-18.0); LYMPHOCYTES % (AUTO) 25.6 % (20.0-45.0); MEAN CORPUSCULAR VOLUME 88 FL (80-99); MONOCYTES % (AUTO) 8.2 % (1.0-10.0); NEUTROPHILS % (AUTO) 60.7 % (45.0-75.0); PLATELET COUNT 129 K/UL (150-450); RED BLOOD COUNT 4.48 M/UL (4.70-6.10); RED CELL DISTRIBUTION WIDTH 12.3 % (11.6-14.8); WHITE BLOOD COUNT 5.3 K/UL (4.8-10.8)
[2018-03-14 08:13] VITALS: BP 151/67
[2018-03-14] MEDS: GlipiZIDE 5mg tab ORAL SCH ×3 (09:00→17:27)
--- NOTE | 2018-03-14 09:08 | General Progress Note ---
Assessment/Plan Status: stable Assessment/Plan 1. UTI - on cefipime 1 gm bid. follow up urine cx. 2. Sepsis - on cefipime and vanco per ID. follow up cultures. improving. will D/C to rehab today or tomorrow if OK with ID. 3. Possible Pnemonia - on cefipime and Azithromycin now. CXR didn't show any change. 4. Mild CHF - resolved. Echo showed EF 60-65%. off Lasix 20 mg. 5. HTN- cont current meds. 6. Hyperlipidemia - cont current med. 7. DM II - cont glipizide 2.5 mg bid. 8. Generalized weakness - PT and OT done. will D/C to rehab for physical therapy and to finish IV antibiotic. Subjective Date patient seen: Mar 14, 2018 Time patient seen: 08:50 Constitutional: Reports: weakness HEENT: Reports: no symptoms Cardiovascular: Reports: no symptoms Respiratory: Reports: no symptoms Gastrointestinal/Abdominal: Reports: no symptoms Genitourinary: Reports: no symptoms Neurologic/Psychiatric: Reports: no symptoms Endocrine: Reports: no symptoms Hematologic/Lymphatic: Reports: no symptoms Allergies: Coded Allergies: No Known Allergies (Verified , 03/19/11) Subjective Pt. is lying in bed. No chest pain or SOB. afebrile and denies any nausea or vomiting. Objective Last 24 Hour Vital Signs Date Time Temp Pulse Resp B/P (MAP) Pulse Ox O2 Delivery O2 Flow Rate FiO2 03/14/18 08:13 97.8 74 18 151/67 95 97.8 03/14/18 04:37 97.3 74 18 153/74 95 97.3 03/14/18 04:37 Nasal Cannula 2.0 03/14/18 00:41 97.0 97 19 152/69 95 97.0 03/14/18 00:41 Nasal Cannula 2.0 03/13/18 20:32 149/57 03/13/18 20:30 Nasal Cannula 2.0 03/13/18 20:30 97.7 64 18 149/57 94 97.7 03/13/18 19:03 Nasal Cannula 2.0 28 03/13/18 19:03 96 Nasal Cannula 2.0 28 03/13/18 16:00 97.0 70 20 151/56 99 Nasal Cannula 2.0 28 97.0 03/13/18 12:00 97.4 73 20 139/46 97 Nasal Cannula 2.0 28 97.4 03/13/18 12:00 67 03/13/18 09:06 73 145/62 03/13/18 09:06 145/62 03/13/18 09:05 145/62 Intake and Output 03/13/18 03/14/18 19:00 07:00 Intake Total 960 ml 385.000 ml Balance 960 ml 385.000 ml Intake Oral 960 ml IV Total 385.000 ml # Voids 4 3 # Bowel Movements 2 1 Laboratory Tests 03/14/18 06:00: White Blood Count 5.3, Red Blood Count 4.48L, Hemoglobin 13.9L, Hematocrit 39.5L , Mean Corpuscular Volume 88, Mean Corpuscular Hemoglobin 31.0, Mean Corpuscular Hemoglobin Concent 35.1, Red Cell Distribution Width 12.3, Platelet Count 129L, Mean Platelet Volume 6.7, Neutrophils (%) (Auto) 60.7, Lymphocytes ( %) (Auto) 25.6, Monocytes (%) (Auto) 8.2, Eosinophils (%) (Auto) 4.7H, Basophils (%) (Auto) 0.9, Sodium Level 139, Potassium Level 4.0, Chloride Level 105, Carbon Dioxide Level 29, Anion Gap 6, Blood Urea Nitrogen 13, Creatinine 0.7, Estimat Glomerular Filtration Rate , Glucose Level 130H, Calcium Level 8.5 Height (Feet): 5 Height (Inches): 10.00 Weight (Pounds): 178 General Appearance: no apparent distress, alert EENT: normal ENT inspection Neck: non-tender, normal alignment, supple Cardiovascular: normal rate, regular rhythm Respiratory/Chest: chest wall non-tender, lungs clear, normal breath sounds Abdomen: normal bowel sounds, non tender, soft Extremities: normal range of motion, non-tender Edema: no edema noted Arm (L), no edema noted Arm (R), no edema noted Leg (L), no edema noted Leg (R), no edema noted Pedal (L), no edema noted Pedal (R), no edema noted Generalized Neurologic: alert, responsive Skin: warm/dry Lymphatic: normal anterior cervical (L), normal anterior cervical (R), normal posterior cervical (L), normal posterior cervical (R), normal submandibular (L) , normal submandibular (R), normal supraclavicular (L), normal supraclavicular ( R), normal axillary (L), normal axillary (R), normal inguinal (L), normal inguinal (R), normal other ROSIE DUNCAN Mar 14, 2018 09:08
[2018-03-14] MEDS: metFORMIN 500mg tab ORAL SCH ×2 (09:25→17:28)
[2018-03-14] MEDS: Metoprolol Succinate XL 50mg tab ORAL SCH (09:25)
[2018-03-14] MEDS: Irbesartan 150mg tablet ORAL SCH ×2 (09:26→20:46)
[2018-03-14] MEDS: Donepezil 5mg Tab ORAL SCH (09:26)
[2018-03-14] MEDS: PARoxetine 20mg tab ORAL SCH (09:26)
[2018-03-14] MEDS: Aspirin Baby 81mg ORAL SCH (09:26)
[2018-03-14] MEDS: Heparin 5000 units/ml inj SUBQ SCH ×2 (09:27→20:47)
[2018-03-14 11:40] VITALS: BP 173/67
--- NOTE | 2018-03-14 15:10 | Infectious Diseases Prog Note ---
Assessment/Plan Problems: (1) HCAP (healthcare-associated pneumonia) Assessment & Plan: with fever and interstitial infiltrates, suspect aspiration , on nector thickened liquids , will continue vancomycin to cover his sepsis due to enterococcus faecalis , continue cefepime and azithrmycin empirically for now , monitor CXR (2) UTI (urinary tract infection) Assessment & Plan: urine culture grew gram negative rods and some other mixed pietro, await identifications , continue cefepime empirically (3) Sepsis Assessment & Plan: due to the above with Enterococcus faecalis , source ? will treat with vancomycin for two weeks , 2D echo didn't show any vegetations , repeated blood culture to confirm clearance is pending. (4) Diabetes Assessment & Plan: recommend tight glycemic control to keep blood glucose between 100-140 (5) Aspiration of food Assessment & Plan: with episodes of cough while eating , had swallow eval and was continued on the current diet he is on with nector thickened liquids, for vedio swallow eval today to rule out silent aspiration Subjective Constitutional: Reports: no symptoms HEENT: Reports: no symptoms Respiratory: Reports: no symptoms Breasts: Reports: no symptoms Cardiovascular: Reports: no symptoms Gastrointestinal/Abdominal: Reports: no symptoms Genitourinary: Reports: no symptoms Neurologic: Reports: no symptoms Psychiatric: Reports: no symptoms Skin: Reports: no symptoms Endocrine: Reports: no symptoms Hematologic: Reports: no symptoms Musculoskeletal: Reports: no symptoms Allergies: Coded Allergies: No Known Allergies (Verified , 03/19/11) Subjective he was awake and responsive, feels ok, no cough or SOB, no nausea or vomiting . tolerated nectar thickened diet well , going for vedio swallow eval Objective Vital Signs Last 24 Hour Vital Signs Date Time Temp Pulse Resp B/P (MAP) Pulse Ox O2 Delivery O2 Flow Rate FiO2 03/14/18 12:12 173/67 03/14/18 11:40 98.2 71 18 173/67 97 98.2 03/14/18 09:26 151/67 03/14/18 09:25 74 151/67 03/14/18 08:13 97.8 74 18 151/67 95 97.8 03/14/18 04:37 97.3 74 18 153/74 95 97.3 03/14/18 04:37 Nasal Cannula 2.0 03/14/18 00:41 97.0 97 19 152/69 95 97.0 03/14/18 00:41 Nasal Cannula 2.0 03/13/18 20:32 149/57 03/13/18 20:30 Nasal Cannula 2.0 03/13/18 20:30 97.7 64 18 149/57 94 97.7 03/13/18 19:03 Nasal Cannula 2.0 28 03/13/18 19:03 96 Nasal Cannula 2.0 28 03/13/18 16:00 97.0 70 20 151/56 99 Nasal Cannula 2.0 28 97.0 Height (Feet): 5 Height (Inches): 10.00 Weight (Pounds): 178 General Appearance: WD/WN, no acute distress HEENT: normocephalic, atraumatic, anicteric, mucous membranes moist Respiratory/Chest: chest wall non-tender, lungs clear, no respiratory distress , no accessory muscle use, decreased breath sounds Cardiovascular: normal peripheral pulses, normal rate, regular rhythm, no gallop/murmur, no JVD Abdomen: normal bowel sounds, soft, non tender, no organomegaly, non distended , no mass, no scars Genitourinary: normal external genitalia Extremities: no cyanosis, no clubbing Skin: no rash, no lesions, no ulcers Neurologic/Psychiatric: alert, responsive Lymphatic: no neck adenopathy, no groin adenopathy Laboratory Tests Test 03/14/18 06:00 White Blood Count 5.3 K/UL (4.8-10.8) Red Blood Count 4.48 M/UL (4.70-6.10) L Hemoglobin 13.9 G/DL (14.2-18.0) L Hematocrit 39.5 % (42.0-52.0) L Mean Corpuscular Volume 88 FL (80-99) Mean Corpuscular Hemoglobin 31.0 PG (27.0-31.0) Mean Corpuscular Hemoglobin Concent 35.1 G/DL (32.0-36.0) Red Cell Distribution Width 12.3 % (11.6-14.8) Platelet Count 129 K/UL (150-450) L Mean Platelet Volume 6.7 FL (6.5-10.1) Neutrophils (%) (Auto) 60.7 % (45.0-75.0) Lymphocytes (%) (Auto) 25.6 % (20.0-45.0) Monocytes (%) (Auto) 8.2 % (1.0-10.0) Eosinophils (%) (Auto) 4.7 % (0.0-3.0) H Basophils (%) (Auto) 0.9 % (0.0-2.0) Sodium Level 139 MMOL/L (136-145) Potassium Level 4.0 MMOL/L (3.5-5.1) Chloride Level 105 MMOL/L (98-107) Carbon Dioxide Level 29 MMOL/L (21-32) Anion Gap 6 mmol/L (5-15) Blood Urea Nitrogen 13 mg/dL (7-18) Creatinine 0.7 MG/DL (0.55-1.30) Estimat Glomerular Filtration Rate mL/min (>60) Glucose Level 130 MG/DL (74-106) H Calcium Level 8.5 MG/DL (8.5-10.1) Current Medications Medications (Trade) Dose Ordered Sig/Breanna Route PRN Reason Start Time Stop Time Status Last Admin Dose Admin Aspirin (ASA) 81 mg DAILY ORAL 03/14/18 09:00 04/10/18 08:59 03/14/18 09:26 Atorvastatin Calcium (Lipitor) 40 mg BEDTIME ORAL 03/13/18 21:00 04/09/18 20:59 03/13/18 20:31 Azithromycin 500 mg/Dextrose 275 ml @ 275 mls/hr DAILY@1630 IV 03/14/18 16:30 03/18/18 23:59 Cefepime HCl 1 gm/ Dextrose 110 ml @ 220 mls/hr Q12H IVPB 03/14/18 04:00 03/18/18 23:59 03/14/18 03:39 Clonidine HCl (Catapres Tab) 0.1 mg Q8HR PRN ORAL SBP>160 03/13/18 22:00 04/12/18 16:59 03/14/18 12:12 Donepezil HCl (Aricept) 5 mg DAILY ORAL 03/14/18 09:00 04/10/18 08:59 03/14/18 09:26 Fexofenadine HCl (Hannah) 60 mg BID ORAL 03/13/18 18:00 04/10/18 08:59 03/14/18 09:26 Glipizide (Glucotrol) 2.5 mg BID ORAL 03/13/18 18:00 04/10/18 08:59 03/13/18 18:36 Heparin Sodium (Porcine) (Heparin 5000 units/ml) 5,000 units EVERY 12 HOURS SUBQ 03/13/18 21:00 04/09/18 20:59 03/14/18 09:27 Irbesartan (Avapro) 150 mg Q12HR ORAL 03/13/18 21:00 04/10/18 08:59 03/14/18 09:26 Metformin HCl (Glucophage) 1,000 mg BID ORAL 03/13/18 18:00 04/10/18 08:59 03/14/18 09:25 Metoprolol Succinate (Toprol XL) 50 mg DAILY ORAL 03/14/18 09:00 04/10/18 08:59 03/14/18 09:25 Paroxetine HCl (Paxil) 30 mg DAILY ORAL 03/14/18 09:00 04/10/18 08:59 03/14/18 09:26 Vancomycin HCl (Vanco rx to dose) 1 ea DAILY PRN MISC Per rx protocol 03/14/18 09:00 04/10/18 17:44 Vancomycin HCl 1 gm/Dextrose 275 ml @ 183.708 mls/hr Q12H IVPB 03/14/18 05:00 03/18/18 16:59 03/14/18 04:39 Giovani Del Toro M.D. Mar 14, 2018 15:10
[2018-03-14 15:54] VITALS: BP 132/56
[2018-03-14] MEDS ORDERED: Azithromycin 500 MG in D5W 275 ML IV SCH (16:30)
[2018-03-14 20:34] VITALS: BP 152/52
[2018-03-14] MEDS: Atorvastatin 20mg tab ORAL SCH (20:45)
[2018-03-15] VITALS: BP 147/56
[2018-03-15] MEDS: Cefepime HCl 1 GM in D5W 110 ML IVPB SCH (04:03)
[2018-03-15 04:48] VITALS: BP 143/63
[2018-03-15] MEDS: Vancomycin 1 GM in D5W 275 ML IVPB SCH (05:00)
[2018-03-15] MEDS ORDERED: Vancomycin 1.5gm/D5W 250ml 250 ML IVPB SCH (07:30)
[2018-03-15 08:00] VITALS: BP 146/57
[2018-03-15] MEDS: Aspirin Baby 81mg ORAL SCH (08:30)
[2018-03-15] MEDS: Donepezil 5mg Tab ORAL SCH (08:30)
[2018-03-15] MEDS: Irbesartan 150mg tablet ORAL SCH (08:31)
[2018-03-15] MEDS: metFORMIN 500mg tab ORAL SCH (08:31)
[2018-03-15] MEDS: GlipiZIDE 5mg tab ORAL SCH ×2 (08:31→08:45)
[2018-03-15 08:32] VITALS: BP 146/57
[2018-03-15] MEDS: Metoprolol Succinate XL 50mg tab ORAL SCH (08:32)
[2018-03-15] MEDS: PARoxetine 20mg tab ORAL SCH (08:32)
[2018-03-15] MEDS: Heparin 5000 units/ml inj SUBQ SCH (09:00)
--- NOTE | 2018-03-15 09:05 | General Progress Note ---
Assessment/Plan Status: stable Assessment/Plan 1. UTI - on cefepime and His urine cx showed proteus. 2. Sepsis - on cefipime and vanco per ID. improved. will D/C to [facility] rehab today and ID cont IV Vanco per ID recomendation in rehab. 3. Possible Pnemonia - on cefipime and Azithromycin now. CXR didn't show any change. 4. Mild CHF - resolved. Echo showed EF 60-65%. off Lasix 20 mg. 5. HTN- cont current meds. 6. Hyperlipidemia - cont current med. 7. DM II - cont glipizide 2.5 mg bid. 8. Generalized weakness - Will D/C to [facility] rehab for physical therapy and to finish IV antibiotic. Subjective Date patient seen: Mar 15, 2018 Time patient seen: 08:50 Constitutional: Reports: no symptoms HEENT: Reports: no symptoms Cardiovascular: Reports: no symptoms Respiratory: Reports: no symptoms Gastrointestinal/Abdominal: Reports: no symptoms Genitourinary: Reports: no symptoms Neurologic/Psychiatric: Reports: no symptoms Endocrine: Reports: no symptoms Hematologic/Lymphatic: Reports: no symptoms Allergies: Coded Allergies: No Known Allergies (Verified , 03/19/11) Subjective Pt. is lying in bed. No chest pain or SOB. More alert than before. afebrile and denies any nausea or vomiting. Objective Last 24 Hour Vital Signs Date Time Temp Pulse Resp B/P (MAP) Pulse Ox O2 Delivery O2 Flow Rate FiO2 03/15/18 08:32 62 146/57 03/15/18 08:31 146/57 03/15/18 08:00 98.4 62 18 146/57 97 98.4 03/15/18 04:48 97.9 63 18 143/63 94 97.9 03/15/18 00:00 95 Nasal Cannula 2.0 03/15/18 00:00 97.8 60 17 147/56 95 97.8 03/14/18 20:46 150/57 03/14/18 20:34 98.3 62 18 152/52 94 98.3 03/14/18 15:54 98.0 64 20 132/56 96 98.0 03/14/18 12:12 173/67 03/14/18 11:40 98.2 71 18 173/67 97 98.2 03/14/18 09:26 151/67 03/14/18 09:25 74 151/67 Intake and Output 03/14/18 03/15/18 19:00 07:00 Intake Total 1465 ml 635 ml Balance 1465 ml 635 ml Intake Oral 1080 ml 360 ml IV Total 385 ml 275 ml # Voids 1 3 Laboratory Tests 03/15/18 04:50: Vancomycin Level Trough 10.3 Height (Feet): 5 Height (Inches): 10.00 Weight (Pounds): 175 General Appearance: no apparent distress, alert EENT: normal ENT inspection, TMs normal Neck: non-tender, normal alignment, supple Cardiovascular: normal rate, regular rhythm Respiratory/Chest: lungs clear, normal breath sounds, no respiratory distress Abdomen: normal bowel sounds, non tender, soft Extremities: normal range of motion, non-tender Edema: no edema noted Arm (L), no edema noted Arm (R), no edema noted Leg (L), no edema noted Leg (R), no edema noted Pedal (L), no edema noted Pedal (R), no edema noted Generalized Edema: mild edema Neurologic: alert, oriented x 3, responsive Skin: warm/dry Lymphatic: normal anterior cervical (L), normal anterior cervical (R), normal posterior cervical (L), normal posterior cervical (R), normal submandibular (L) , normal submandibular (R), normal supraclavicular (L), normal supraclavicular ( R), normal axillary (L), normal axillary (R), normal inguinal (L), normal inguinal (R), normal other ROSIE DUNCAN Mar 15, 2018 09:05
[2018-03-15] MEDS ORDERED: GLIPIZIDE5 MG ORAL (09:09)
[2018-03-15] MEDS ORDERED: CLONIDINE0.1 MG ORAL (09:09)
[2018-03-15] MEDS ORDERED: CEFEPIME-D1 GM/50 ML IVPB ×2 (10:41→10:43)
[2018-03-15] MEDS ORDERED: VANC (10:43)
[2018-03-15] MEDS ORDERED: vancomycin iv (10:44)
--- NOTE | 2018-03-15 13:49 | Infectious Diseases Prog Note ---
Assessment/Plan Problems: (1) HCAP (healthcare-associated pneumonia) Assessment & Plan: with fever and interstitial infiltrates, suspect aspiration , now on nector thickened liquids , will continue vancomycin to cover his sepsis due to enterococcus faecalis , continue cefepime empirically for 7 days total (2) UTI (urinary tract infection) Assessment & Plan: urine culture grew MDR proteus mirabilis, continue cefepime for 7 days total (3) Sepsis Assessment & Plan: due to the above with Enterococcus faecalis , source ? will treat with vancomycin for two weeks starting from his repeated negative blood culture , 2D echo didn't show any vegetations , repeated blood culture to confirm clearance is negative on 03/13/18. EOT 03/27/18. (4) Diabetes Assessment & Plan: recommend tight glycemic control to keep blood glucose between 100-140 (5) Aspiration of food Assessment & Plan: with episodes of cough while eating , had swallow eval and was continued on the current diet he is on with nector thickened liquids, for vedio swallow eval today to rule out silent aspiration Subjective Constitutional: Reports: no symptoms HEENT: Reports: no symptoms Respiratory: Reports: no symptoms Breasts: Reports: no symptoms Cardiovascular: Reports: no symptoms Gastrointestinal/Abdominal: Reports: no symptoms Genitourinary: Reports: no symptoms Neurologic: Reports: no symptoms Psychiatric: Reports: no symptoms Skin: Reports: no symptoms Endocrine: Reports: no symptoms Hematologic: Reports: no symptoms Musculoskeletal: Reports: no symptoms Allergies: Coded Allergies: No Known Allergies (Verified , 03/19/11) Subjective he was doing ok , awake and responsive, no cough or SOB, no nausea or vomiting . tolerated nectar thickened diet well . Objective Vital Signs Last 24 Hour Vital Signs Date Time Temp Pulse Resp B/P (MAP) Pulse Ox O2 Delivery O2 Flow Rate FiO2 03/15/18 08:32 62 146/57 03/15/18 08:31 146/57 03/15/18 08:00 98.4 62 18 146/57 97 98.4 03/15/18 04:48 97.9 63 18 143/63 94 97.9 03/15/18 00:00 95 Nasal Cannula 2.0 03/15/18 00:00 97.8 60 17 147/56 95 97.8 03/14/18 20:46 150/57 03/14/18 20:34 98.3 62 18 152/52 94 98.3 03/14/18 15:54 98.0 64 20 132/56 96 98.0 Height (Feet): 5 Height (Inches): 10.00 Weight (Pounds): 175 General Appearance: WD/WN, no acute distress HEENT: normocephalic, atraumatic, anicteric, mucous membranes moist, PERRL Respiratory/Chest: chest wall non-tender, normal breath sounds, no respiratory distress, no accessory muscle use, decreased breath sounds Cardiovascular: normal peripheral pulses, normal rate, regular rhythm, no gallop/murmur, no JVD Abdomen: normal bowel sounds, soft, non tender, no organomegaly, non distended , no mass, no scars Extremities: no cyanosis, no clubbing Skin: no rash, no lesions, no ulcers Neurologic/Psychiatric: alert, responsive Lymphatic: no neck adenopathy Microbiology Date/Time Source Procedure Growth Status 03/13/18 15:15 Blood Blood Culture - Preliminary NO GROWTH AFTER 24 HOURS Resulted 03/13/18 15:00 Blood Blood Culture - Preliminary NO GROWTH AFTER 24 HOURS Resulted Laboratory Tests Test 03/15/18 04:50 Vancomycin Level Trough 10.3 ug/mL (5.0-12.0) Giovani Del Toro M.D. Mar 15, 2018 13:49
[2018-03-15] MEDS ORDERED: Vancomycin 1250mg/D5W 250ml IVPB SCH (21:00)
--- NOTE | 2018-03-17 15:46 | Diagnostic Imaging Report ---
Indication: Dysphasia Procedure and findings: Real-time fluoroscopic imaging performed in a lateral projection in conjunction with the speech pathologist evaluation. Variable consistencies of barium given per mouth. Findings: Significant abnormalities of both oral and pharyngeal phases of swallowing are demonstrated. Total fluoroscopic time 192 seconds. Trace laryngeal penetration demonstrated with thin barium. No aspiration identified. Abnormal video swallow. Please refer to speech pathology evaluation for more information.
--- NOTE | 2018-03-18 10:00 | Discharge Summary ---
DATE OF ADMISSION: 03/10/2018 DATE OF DISCHARGE: 03/15/2018 HOSPITAL COURSE: This is an 88-year-old male who came in for complaint of fever and chills with vomiting at the assisted living where he resides. The patient was found to have urinary tract infection and sepsis. He also had healthcare-associated pneumonia. The patient was started on intravenous antibiotics including vancomycin, cefepime, and azithromycin. He was seen by infectious disease as well. He grew Enterococcus faecalis in blood culture. The patient will be treated for 2 weeks with vancomycin in Rehab. The source of Enterobacter was not found. His urine did no show enterococcus, but because the patient did have enterococcus, ID decided to continue the patient on vancomycin for two weeks. He also had swallowing evaluation done that was negative for aspiration but because he was weak, the patient was still kept on nectar thick liquids and he will be changed to regular diet as he improve as an outpatient in the assisted alf. He also had slight sinus congestive heart failure with shortness of breath originally and was started on Lasix for few days and that improved. His ejection fraction by echo showed 65% and his shortness of breath resolved in the last three days of admission. Since he was weak, we decided to transfer the patient to [facility] for physical therapy and to finish his IV antibiotics with vancomycin. DISCHARGE DIAGNOSES: 1. Urinary tract infection. 2. Sepsis. 3. Hospital-acquired pneumonia. 4. Mild congestive heart failure. 5. Hypertension. 6. Hyperlipidemia. 7. Diabetes type 2. 8. Generalized weakness. DISCHARGE MEDICATIONS: 1. Clonidine 0.1 mg every 8 hours as needed for systolic blood pressure greater than 160. 2. Glipizide 2.5 mg b.i.d. 3. Aspirin 81 mg daily. 4. Atorvastatin 40 mg at bedtime. 5. Cefepime 1 g IV q.12 hours for 5 days. 6. Aricept 5 mg daily. 7. Glucophage 1000 mg twice a day. 8. Metoprolol succinate 50 mg daily. 9. Scio 3 fatty acids 1000 mg daily. 10. Paxil 30 mg p.o. daily. 11. Diovan 160 mg b.i.d. 12. Vancomycin pharmacy to dose until 03/27/2018. DISPOSITION: The patient was transferred to [facility] for IV antibiotics and physical therapy. Maribeth Loya M.D. DR: Mulugeta JOB#: [id number] CC: [id number]
== END 2018-03-15 12:00 | DRG 871 ==
LOC: EDBD 13:51 → EMR 14:27 → EDBEDREQSVC 15:28 → 2E 15:30 → EDBEDREQ 15:50 → 4W 03-13 17:52
DX: A41.81 Sepsis due to Enterococcus (principal); J18.9 Pneumonia, unspecified organism; N39.0 Urinary tract infection, site not specified; I50.9 Heart failure, unspecified; Y95 Nosocomial condition; J44.9 Chronic obstructive pulmonary disease, unspecified; F03.90 Unspecified dementia, unspecified severity, without behavioral disturbance, psychotic disturbance, mood disturbance, and anxiety; R53.1 Weakness; E78.5 Hyperlipidemia, unspecified; I10 Essential (primary) hypertension; E11.649 Type 2 diabetes mellitus with hypoglycemia without coma; Z79.84 Long term (current) use of oral hypoglycemic drugs
CPT/HCPCS: 36415; 71045; 74230; 80048; 80053; 80202; 81003; 82550; 82553; 82962; 83605; 83880; 84484; 85007; 85025; 87040; 87081; 87086; 87181; 93005; 93306; 94760; 99285; J2405

== ENCOUNTER 2019-03-31 16:10 | Emergency (ER) | payer MEDICARE, OTHER ==
[~2019-03-31] VITALS: Ht 182.9 cm; Wt 86.2 kg
[~2019-03-31 16:10] MED LIST changes: +CEFEPIME-D1 GM/50 ML IVPB; +CLONIDINE0.1 MG ORAL; +CLORPRES 0.1-11 EACH PO; +VANC; +vancomycin iv
--- NOTE | 2019-03-31 16:15 | Emergency Room Report ---
History of Present Illness General Chief Complaint: General Complaint Source: Medical Record, EMS Present Illness HPI Patient is an 89-year-old male brought in by EMS from nursing facility after increased generalized weakness as well as decreased urine output. Patient a prior history of dementia and is currently on Aricept. Per patient's primary care physician had been having decreased urine output. He had been noted to be somewhat weak all over. Patient had prior history of type 2 diabetes. He is currently taking metformin. He had not been having any vomiting or diarrhea. Patient denies any current symptoms. He had also had some reported reduction of urine output.He reportedly had not been having any fever. He was brought in by EMS. His history is obtained from EMS. Allergies: Coded Allergies: No Known Allergies (Verified , 03/19/11) Patient History Past Medical History: see triage record Reviewed Nursing Documentation: PMH: Agreed; PSxH: Agreed Nursing Documentation-PM Past Medical History: No History, Except For Hx Cardiac Problems: Yes Hx Hypertension: Yes Hx COPD: Yes Hx Diabetes: Yes Hx Cancer: No Hx Gastrointestinal Problems: No Hx Neurological Problems: Yes - Roman's Palsy Hx Dementia: Yes Hx Memory Loss: Yes - mild cognition problems Hx Concentration Difficulty: Yes Hx Dizziness: Yes Hx Weakness: Yes Review of Systems All Other Systems: negative except mentioned in HPI Physical Exam Vital Signs Date Time Temp Pulse Resp B/P (MAP) Pulse Ox O2 Delivery O2 Flow Rate FiO2 03/31/19 16:04 97.5 66 20 154/61 (92) 90 Room Air Sp02 EP Interpretation: reviewed, normal General Appearance: normal inspection, well appearing, no apparent distress, alert, GCS 15, non-toxic, Chronically Ill Head: atraumatic ENT: normal ENT inspection, hearing grossly normal, normal voice Neck: normal inspection, full range of motion, supple, no bony tend Respiratory: normal inspection, lungs clear, normal breath sounds, no respiratory distress, no retraction, no wheezing Cardiovascular #1: regular rate, rhythm, no edema Gastrointestinal: normal inspection, normal bowel sounds, non tender, soft, no guarding, no hernia Genitourinary: no CVA tenderness Musculoskeletal: normal inspection, back normal, normal range of motion Neurologic: normal inspection, alert, responsive, speech normal Psychiatric: normal inspection, judgement/insight normal, mood/affect normal Skin: normal inspection, normal color, no rash Medical Decision Making Diagnostic Impression: Primary Impression: Generalized weakness Additional Impression: UTI (urinary tract infection) ER Course Patient is an 89-year-old male who presented for increased generalized weakness and difficulty with urination. Differential diagnosis include was not limited to urinary infection, prostatitis, bladder stone, among others. Because of complexity of patient's case laboratory testing and imaging studies were ordered. Patient's laboratory testing showed normal white blood count as well as urinary infection. Patient was started on IV antibiotics. Patient was given prescription for ciprofloxacin. EKG interpreted by me showed normal sinus rhythm with frequent PACs. There were no acute ST or T wave changes. Patient's EKG is unchanged from previous. Patient previous echocardiogram with ejection fraction approximately 60%. Patient was discussed with primary care physician will follow up on culture results. Patient will be transferred back to his facility. He appears to be stable for discharge. Labs Test 03/31/19 16:25 White Blood Count 7.6 K/UL (4.8-10.8) Red Blood Count 4.34 M/UL (4.70-6.10) Hemoglobin 12.8 G/DL (14.2-18.0) Hematocrit 36.5 % (42.0-52.0) Mean Corpuscular Volume 84 FL (80-99) Mean Corpuscular Hemoglobin 29.5 PG (27.0-31.0) Mean Corpuscular Hemoglobin Concent 35.1 G/DL (32.0-36.0) Red Cell Distribution Width 12.3 % (11.6-14.8) Platelet Count 165 K/UL (150-450) Mean Platelet Volume 6.9 FL (6.5-10.1) Neutrophils (%) (Auto) 68.5 % (45.0-75.0) Lymphocytes (%) (Auto) 19.5 % (20.0-45.0) Monocytes (%) (Auto) 8.5 % (1.0-10.0) Eosinophils (%) (Auto) 2.5 % (0.0-3.0) Basophils (%) (Auto) 1.1 % (0.0-2.0) Urine Color Brown Urine Appearance Cloudy Urine pH 6 (4.5-8.0) Urine Specific [place] 1.015 (1.005-1.035) Urine Protein 4+ (NEGATIVE) Urine Glucose (UA) Negative (NEGATIVE) Urine Ketones Negative (NEGATIVE) Urine Blood 3+ (NEGATIVE) Urine Nitrite Positive (NEGATIVE) Urine Bilirubin Negative (NEGATIVE) Urine Urobilinogen 4 MG/DL (0.0-1.0) Urine Leukocyte Esterase 3+ (NEGATIVE) Urine RBC 2-4 /HPF (0 - 0) Urine WBC Tntc /HPF (0 - 0) Urine Squamous Epithelial Cells None /LPF (NONE/OCC) Urine Bacteria Moderate /HPF (NONE) Sodium Level 140 MMOL/L (136-145) Potassium Level 3.9 MMOL/L (3.5-5.1) Chloride Level 105 MMOL/L (98-107) Carbon Dioxide Level 28 MMOL/L (21-32) Anion Gap 7 mmol/L (5-15) Blood Urea Nitrogen 18 mg/dL (7-18) Creatinine 0.8 MG/DL (0.55-1.30) Estimat Glomerular Filtration Rate mL/min (>60) Glucose Level 82 MG/DL (74-106) Calcium Level 8.7 MG/DL (8.5-10.1) Total Bilirubin 0.4 MG/DL (0.2-1.0) Aspartate Amino Transf (AST/SGOT) 15 U/L (15-37) Alanine Aminotransferase (ALT/SGPT) 10 U/L (12-78) Alkaline Phosphatase 63 U/L (46-116) Troponin I 0.011 ng/mL (0.000-0.056) Pro-B-Type Natriuretic Peptide 1585 pg/mL (0-125) Total Protein 5.7 G/DL (6.4-8.2) Albumin 2.1 G/DL (3.4-5.0) Globulin 3.6 g/dL Albumin/Globulin Ratio 0.6 (1.0-2.7) Thyroid Stimulating Hormone (TSH) 2.299 uiU/mL (0.358-3.740) Last Vital Signs Date Time Temp Pulse Resp B/P (MAP) Pulse Ox O2 Delivery O2 Flow Rate FiO2 03/31/19 16:04 97.5 66 20 154/61 (92) 90 Room Air Status: improved Disposition: HOME, SELF-CARE Condition: Stable Oneil Aponte MD Mar 31, 2019 16:15
[2019-03-31 16:18] VITALS: BP 155/72
--- NOTE | 2019-03-31 16:18 | NUR ---
ED Nurse Note: Patient brought in to ER by ambulance from [facility] for evaluation due to recently reduced urine output and decreased appetite. patient is aao x2-3 and ambulatory with assist. skin clean and intact but redness on coccyx noted. picture taken and it will be uploaded. calm and cooperative. pt is able to move side to side in bed. pt is in gown and on cardiac monitor technician.
[2019-03-31] MEDS ORDERED: FISH OIL CAP1000 MG ORAL (16:23)
[2019-03-31 16:49] LABS: APPEARANCE,URINE CLOUDY; BILIRUBIN, URINE NEGATIVE (NEGATIVE); COLOR,URINE BROWN; GLUCOSE, URINE (UA) NEGATIVE (NEGATIVE); KETONES,URINE NEGATIVE (NEGATIVE); LEUKOCYTE ESTERASE ,URINE 3+ (NEGATIVE); NITRITE,URINE POSITIVE (NEGATIVE); PH,URINE 6 (4.5-8.0); PROTEIN,URINE 4+ (NEGATIVE); UROBILINOGEN,URINE 4 MG/DL (0.0-1.0)
[2019-03-31 16:50] LABS: BASOPHILS % (AUTO) 1.1 % (0.0-2.0); EOSINOPHILS % (AUTO) 2.5 % (0.0-3.0); HEMATOCRIT 36.5 % (42.0-52.0); HEMOGLOBIN 12.8 G/DL (14.2-18.0); LYMPHOCYTES % (AUTO) 19.5 % (20.0-45.0); MEAN CORPUSCULAR VOLUME 84 FL (80-99); MONOCYTES % (AUTO) 8.5 % (1.0-10.0); NEUTROPHILS % (AUTO) 68.5 % (45.0-75.0); PLATELET COUNT 165 K/UL (150-450); RED BLOOD COUNT 4.34 M/UL (4.70-6.10); RED CELL DISTRIBUTION WIDTH 12.3 % (11.6-14.8); WHITE BLOOD COUNT 7.6 K/UL (4.8-10.8)
[2019-03-31 16:58] LABS: ANION GAP 7 mmol/L (5-15); BLOOD UREA NITROGEN 18 mg/dL (7-18); CALCIUM 8.7 MG/DL (8.5-10.1); CARBON DIOXIDE 28 MMOL/L (21-32); CHLORIDE 105 MMOL/L (98-107); CREATININE 0.8 MG/DL (0.55-1.30); POTASSIUM 3.9 MMOL/L (3.5-5.1); SODIUM 140 MMOL/L (136-145)
[2019-03-31 17:11] LABS: ALANINE AMINOTRANSFERASE 10 U/L (12-78); ALBUMIN 2.1 G/DL (3.4-5.0); ALBUMIN/GLOBULIN RATIO 0.6 (1.0-2.7); ALKALINE PHOSPHATASE 63 U/L (46-116); ASPARTATE AMINO TRANSFERASE 15 U/L (15-37); BILIRUBIN,TOTAL 0.4 MG/DL (0.2-1.0)
[2019-03-31] MEDS ORDERED: cefTRIAXone 1 GM in NS 55 ML IVPB ONE (17:45)
--- NOTE | 2019-03-31 17:52 | Diagnostic Imaging Report ---
EXAM: XR Chest, 1 View CLINICAL HISTORY: SOB TECHNIQUE: Frontal view of the chest. COMPARISON: No relevant prior studies available. FINDINGS: Lungs: Accentuation of interstitial markings. Mild left basilar atelectasis/pneumonitis. Reduced lung volumes. Pleural space: Unremarkable. No pneumothorax. Heart: Cardiomegaly. Mediastinum: Unremarkable. Bones/joints: No acute fracture. Vasculature: Prominent aortic knob. IMPRESSION: Accentuation of interstitial markings. Mild left basilar atelectasis/pneumonitis.
[2019-03-31 19:00] VITALS: BP 140/75
--- NOTE | 2019-03-31 19:01 | NUR ---
HAND-OFF: Report given to VILLA Hercules. pt is waiting for the transporation to go back to SNF. pt stable and resting in bed.
--- NOTE | 2019-03-31 21:17 | NUR ---
ER DISCHARGE NOTE: Patient is cleared to be discharged per ERMD, pt is aox4, on room air, with stable vital signs. pt was given dc and prescription instructions, pt was able to verbalize understanding, pt id band and iv site removed without complications. pt is taken back to [facility] by ambulance. pt took all belongings. Herb bates reciejosé antonio RN
[2019-03-31 21:30] VITALS: BP 135/78
== END 2019-03-31 21:30 | disposition home or self-care (01) ==
LOC: EDBD 16:10 → EMR 16:25 → EDBEDREQ 17:49 → EMR 21:30
DX: R53.1 Weakness (principal); N39.0 Urinary tract infection, site not specified; I10 Essential (primary) hypertension; J44.9 Chronic obstructive pulmonary disease, unspecified; E11.9 Type 2 diabetes mellitus without complications; G51.0 Bell's palsy; F03.90 Unspecified dementia, unspecified severity, without behavioral disturbance, psychotic disturbance, mood disturbance, and anxiety; Z79.84 Long term (current) use of oral hypoglycemic drugs
CPT/HCPCS: 36415; 71045; 80053; 81001; 83880; 84443; 84484; 85025; 87081; 87086; 87181; 93005; 96365; 99284; J0696